=== PATIENT | male | born 1960 | race Caucasian/White ===

== ENCOUNTER 2024-11-19 11:00 | Outpatient (CLI) | payer MEDICARE, MEDICAID, SELFPAY ==
[2024-11-19 16:29] LABS: Microscopic, Urine URINE MICROSCOPIC (MICROSCOPIC)
[2024-11-19 19:05] LABS: Appearance,Urine CLEAR (Clear); Bilirubin,Urine Negative (Negative); Blood, Urine Negative (Negative); Color,Urine YELLOW (Yellow); Glucose,Urine (UA) Negative (Negative); Ketones,Urine Negative (Negative); Leukocyte Esterase,Urine Negative (Negative); Nitrate,Urine Negative (Negative); Protein,Urine Negative (Negative); Specific Gravity, Urine 1.025 (1.005-1.030); Urobilinogen,Urine 0.2 EU/dl (0.2)
[2024-11-19 19:26] LABS: Bacteria,Urine Trace /lpf; WBC,Urine Occasional #/hpf (0-3)
== END 2024-11-19 23:59 | disposition home or self-care (01) ==
LOC: LAB.DROPOF 11-21 12:29
PROVIDERS: PCP Urology; Visit Provider Urology
DX: N40.0 Benign prostatic hyperplasia without lower urinary tract symptoms (principal); R31.9 Hematuria, unspecified
CPT/HCPCS: 81001

== ENCOUNTER 2024-11-29 09:22 | Outpatient (CLI) | payer MEDICARE, MEDICAID, SELFPAY ==
[2024-11-29 10:22] LABS: Adenovirus F 40/41, stool Not Detected (NotDetected); Astrovirus Not Detected (NotDetected); Campylobacter Not Detected (NotDetected); Clostridium Difficile A/B, PCR Not Detected (NotDetected); Cryptosporidium Not Detected (NotDetected); Cyclospora Cayetanesis Not Detected (NotDetected); Entamoeba histolytica Not Detected (NotDetected); Enteroaggregative E coli Not Detected (NotDetected); Enteropathogenic E coli Not Detected (NotDetected); Enterotoxigenic E coli Not Detected (NotDetected); Giardia lamblia Not Detected (NotDetected); Norovirus Not Detected (NotDetected); Plesimonas Shigalloides, PCR Not Detected (NotDetected); Rotavirus A Not Detected (NotDetected); Salmonella, PCR Not Detected (NotDetected); Sapovirus Not Detected (NotDetected); Shiga-like toxin E coli Not Detected (NotDetected); Shigella Enterovasive E coli Not Detected (NotDetected); Vibrio Cholerae Not Detected (NotDetected); Vibrio, PCR Not Detected (NotDetected); Yersinia Entercolitica, PCR Not Detected (NotDetected)
== END 2024-11-29 23:59 | disposition home or self-care (01) ==
PROVIDERS: PCP Family Medicine; Visit Provider Family Medicine
DX: R19.7 Diarrhea, unspecified (principal); E11.9 Type 2 diabetes mellitus without complications; R31.9 Hematuria, unspecified
CPT/HCPCS: 87507

== ENCOUNTER 2024-12-10 08:39 | Outpatient (CLI) | payer MEDICARE, MEDICAID, SELFPAY ==
[2024-12-10 08:48] LABS: Albumin Level 4.3 g/dl (3.5-5.0); Chloride 104 mmol/L (98-107); Potassium 4.2 mmoL/L (3.5-5.1); Sodium 141 mmol/L (136-145)
[2024-12-10 08:51] LABS: Alanine Aminotransferase 13 U/L (12-78); Albumin/Globulin Ratio 1.6 (1.1-1.8); Anion Gap 7.2 mEq/L (5-15); Aspartate Amino Transferase 22 U/L (17-59); Blood Urea Nitrogen 18 mg/dl (9-20); Carbon Dioxide 34 mmol/L (22.0-30.0); Estimated Glomerular Filt Rate 75 ml/min (>60); GFR (African American) 91 ML/MIN (>60); Globulin 2.7 g/dL (1.3-3.2)
[2024-12-10 08:52] LABS: Alkaline Phosphatase 86 U/L (38-126); Bilirubin,Total 0.5 mg/dl (0.2-1.3); Calcium 9.2 mg/dl (8.4-10.2); Glucose 83 mg/dl (74-100)
== END 2024-12-10 23:59 | disposition home or self-care (01) ==
LOC: LAB.DROPOF 08:39
PROVIDERS: PCP Family Medicine; Visit Provider Family Medicine
DX: R19.7 Diarrhea, unspecified (principal); R31.9 Hematuria, unspecified; E11.22 Type 2 diabetes mellitus with diabetic chronic kidney disease; I12.9 Hypertensive chronic kidney disease with stage 1 through stage 4 chronic kidney disease, or unspecified chronic kidney disease; N18.9 Chronic kidney disease, unspecified
CPT/HCPCS: 80053; 84153

== ENCOUNTER 2024-12-12 07:51 | Outpatient (CLI) | payer MEDICARE, MEDICAID, SELFPAY ==
--- NOTE | 2024-12-12 07:51 | CT_ITS ---
FINAL REPORT TECHNIQUE: Pre-and postcontrast axial imaging of the abdomen and pelvis was obtained. Hematuria protocol was utilized. This study was performed with techniques to keep radiation doses as low as reasonably achievable, (ALARA). Individualized dose reduction technique using automated exposure control or adjustment of mA and/or kV according to the patient's size were employed. CLINICAL HISTORY: Hematuria FINDINGS: There are reticular nodular opacities in the lower lobe favored to represent infectious or inflammatory process. The liver is homogeneous without focal lesion. Multiple gallstones are seen in the gallbladder. The spleen and pancreas are without acute abnormalities. There are bilateral adrenal nodules measuring 17 mm on the right and 22 mm on the left. Both demonstrate less than 10 Hounsfield units on the noncontrast imaging consistent with adenomas. Precontrast imaging demonstrates bilateral nonobstructing stones. There is no hydronephrosis. There are bilateral hypodense renal lesions. Some of these are cyst. A small lesion along the anterior inferior left kidney is difficult to characterize due to small size. A small solid lesion is not excluded. There is no small bowel obstruction. There is an abdominal aortic aneurysm measuring 31 mm. 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 There is a patent femoral to femoral bypass graft. The appendix is normal. There is wall thickening of the sigmoid colon and the descending colon. Colitis is not excluded. The prostate is mildly enlarged. The urinary bladder is thick-walled with surrounding abnormal in attenuation. There is no lymphadenopathy or ascites. No acute osseous abnormality is seen. IMPRESSION: Bilateral nonobstructing renal stones. Small lesion in the inferior pole the left kidney could be a small solid lesion. Evaluation is limited. 3 to 6-month renal mass protocol CT is recommended. Possible left lower lobe pneumonia. Cystitis. Wall thickening of the distal portions of the colon Possible left lower lobe pneumonia. Cystitis. Wall thickening of the distal portions of the colon. Colitis is not excluded. Additional chronic findings as above. Reviewed, Interpreted and Dictated by Kelly Brower MD Transcribed by Gertrudis Drummond Authenticated and [facility]
[2024-12-12] MEDS: IOPAMIDOL-370 (76%);100ML BOTTLE 75 ML IV (08:17)
[2024-12-12] MEDS: SODIUM CHLORIDE 0.9% 10ML SYR (RAD ONLY) 10 ML IV (08:17)
== END 2024-12-12 23:59 | disposition home or self-care (01) ==
PROVIDERS: PCP Family Medicine; Visit Provider Urology
DX: N40.0 Benign prostatic hyperplasia without lower urinary tract symptoms (principal); R31.9 Hematuria, unspecified
CPT/HCPCS: 74178; Q9967

== ENCOUNTER 2024-12-21 10:19 | Outpatient (CLI) | payer MEDICARE, MEDICAID, SELFPAY ==
[2024-12-21 10:39] LABS: Glucose,Random 83 mg/dL (74-100)
== END 2024-12-21 23:59 | disposition home or self-care (01) ==
LOC: LAB 10:20
PROVIDERS: PCP Nurse Practitioner Family; Visit Provider Nurse Practitioner Family
DX: E11.9 Type 2 diabetes mellitus without complications (principal)
CPT/HCPCS: 36415; 82947

== ENCOUNTER 2025-01-04 07:25 | Day surgery (SDC) | payer MEDICARE, MEDICAID, SELFPAY ==
[2025-01-01 10:02] VITALS: BMI 21.1
[2025-01-04 08:03] VITALS: BP 142/65; PULSE 47; RESP 18; TEMP 36.3; O2SAT 97
[2025-01-04] MEDS: 0.9 % SODIUM CHLORIDE 500 ML 25 ML IV (08:20)
[2025-01-04] MEDS: LIDOCAINE 2% UROJET 10ML 10 ML (08:20)
[2025-01-04 08:24] VITALS: BP 165/68; PULSE 55; RESP 16; RESP 18; TEMP 37.1; O2SAT 97; O2SAT 98
--- NOTE | 2025-01-04 08:24 | P.PCN_ITS ---
[facility] Procedure Note Date: 01/04/25 Time: 08:24 Procedure Note:: Chart review: Patient resides in the detention. He has been having intermittent total gross painless hematuria. He is here for cystoscopy. His CT scan on 12/11 shows bilateral nephrolithiasis. There is a small questionable lesion of the left kidney and we will follow that with a CT scan 06/13. Pre-Op diagnosis: Hematuria Postop diagnosis: Hematuria Operative note: The patient was brought to the cystoscopy suite. Xylocaine jelly was instilled into the urethra. He underwent flexible cystoscopy. The anterior urethra was unremarkable. From the level of the verumontanum the patient has grade 2 trilobar prostate obstruction. The patient's bladder is moderately trabeculated throughout. The left and right ureteral orifices are normal with clear reflux of urine. There is no evidence of bladder stone tumor hemorrhage or infection. The patient tolerated the procedure well.
[2025-01-04 14:52] LABS: POC Glucose,Bedside 88 (70-110)
== END 2025-01-04 08:45 | disposition home or self-care (01) ==
PROVIDERS: PCP Family Medicine; Visit Provider Urology
PROC: 0TJB8ZZ Inspection of Bladder, Via Natural or Artificial Opening Endoscopic (ICD-10-PCS; CPT 52000; principal; 2025-01-04 08:45)
DX: R31.0 Gross hematuria (principal); E11.9 Type 2 diabetes mellitus without complications
CPT/HCPCS: 52000; 82962

== ENCOUNTER 2025-01-09 07:18 | Outpatient (CLI) | payer MEDICARE, MEDICAID, SELFPAY ==
[2025-01-09 07:57] LABS: Glucose,Random 86 mg/dL (74-100)
== END 2025-01-09 23:59 | disposition home or self-care (01) ==
PROVIDERS: PCP Family Medicine; Visit Provider Family Medicine
DX: E11.9 Type 2 diabetes mellitus without complications (principal)
CPT/HCPCS: 36415; 82947

== ENCOUNTER 2025-01-16 07:09 | Outpatient (CLI) | payer MEDICARE, MEDICAID, SELFPAY ==
[2025-01-16 07:31] LABS: Glucose,Random 86 mg/dL (74-100)
== END 2025-01-16 23:59 | disposition home or self-care (01) ==
PROVIDERS: PCP Family Medicine; Visit Provider Family Medicine
DX: E11.9 Type 2 diabetes mellitus without complications (principal)
CPT/HCPCS: 36415; 82947

== ENCOUNTER 2025-03-09 00:47 | Emergency (ER) | payer MEDICARE, MEDICAID, SELFPAY ==
--- NOTE | 2025-03-09 00:44 | ECG_ITS ---
APPROVED REPORT Exam: Resting ECG HR:59 bpm ECG Measurements Heart Rate 59 AXES VA 179 P 85 QRSd 95 QRS 87 QT 455 T 82 QTc 454 Conclusion SINUS BRADYCARDIA ABNORMAL ECG UNCONFIRMED REPORT Electronically signed by : MICHAEL ESPARZA, 03/10/2025 02:40:33
--- NOTE | 2025-03-09 00:47 | CT_ITS ---
PROCEDURE INFORMATION: Exam: CT Thoracic Spine Without Contrast Exam date and time: 03/09/2025 1:01 AM Age: 64 years old Clinical indication: Injury or trauma; Fall TECHNIQUE: Imaging protocol: Computed tomography of the thoracic spine without contrast. Total images: 334 Radiation optimization: All CT scans at this facility use at least one of these dose optimization techniques: automated exposure control; mA and/or kV adjustment per patient size (includes targeted exams where dose is matched to clinical indication); or iterative reconstruction. COMPARISON: CT CERVICAL SPINE WO CON 03/09/2025 12:58 AM FINDINGS: Bones/joints: Osseous demineralization. Mild anterior wedging of the T5 vertebral body appears nonacute. Mild superior endplate depression T6, T9, and T10 vertebral bodies also appears nonacute. Vertebral body alignment is preserved. No acute compression deformities. No large disc herniation or critical spinal canal stenosis. The facet joints are appropriately aligned. Maintained thoracic kyphosis. Mild S-shaped thoracic scoliosis. Mild multilevel degenerative disc disease with mild degenerative endplate spurring. Included posterior ribs and bilateral costovertebral joints are maintained. Soft tissues: No paraspinal mass, fluid collection, or edema. Unremarkable soft tissues. Other findings: Please refer to separate chest CT for additional details. IMPRESSION: 1. No acute thoracic fracture or traumatic subluxation. 2. Mild anterior wedging of T5 vertebral body appears nonacute. 3. Mild superior endplate depression T6, T9, and T10 vertebral bodies also appears nonacute. 4. Mild multilevel degenerative disc disease.
--- NOTE | 2025-03-09 00:47 | CT_ITS ---
PROCEDURE INFORMATION: Exam: CT Head Without Contrast Exam date and time: 03/09/2025 12:55 AM Age: 64 years old Clinical indication: Injury or trauma; Fall TECHNIQUE: Imaging protocol: Computed tomography of the head without contrast. Total images: 635 Radiation optimization: All CT scans at this facility use at least one of these dose optimization techniques: automated exposure control; mA and/or kV adjustment per patient size (includes targeted exams where dose is matched to clinical indication); or iterative reconstruction. COMPARISON: No relevant prior studies available. FINDINGS: Brain: No acute intracranial hemorrhage, midline shift, or mass. Moderate to severe cortical atrophy. Severe remote white matter small-vessel ischemic changes. 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 No acute territorial infarct. Basilar cisterns are preserved. Remote lacunar infarcts in the left basal ganglia and left thalamus. Benign dense dural calcification along the falx. Cerebral ventricles: Ventriculomegaly compatible degree of central atrophy. Paranasal sinuses: Mild mucosal thickening base of the bilateral maxillary sinuses and scattered ethmoid air cells. No air-fluid levels. Mastoid air cells: Visualized mastoid air cells are well aerated. Bones: Osseous demineralization. No skull fracture. Soft tissues: Unremarkable. Vasculature: Severe calcifications bilateral intracranial internal carotid arteries. IMPRESSION: 1. No acute intracranial process. 2. Advanced chronic intracranial findings as described.
--- NOTE | 2025-03-09 00:47 | CT_ITS ---
PROCEDURE INFORMATION: Exam: CT Cervical Spine Without Contrast Exam date and time: 03/09/2025 12:58 AM Age: 64 years old Clinical indication: Injury or trauma; Fall TECHNIQUE: Imaging protocol: Computed tomography of the cervical spine without contrast. Total images: 365 Radiation optimization: All CT scans at this facility use at least one of these dose optimization techniques: automated exposure control; mA and/or kV adjustment per patient size (includes targeted exams where dose is matched to clinical indication); or iterative reconstruction. COMPARISON: CT HEAD/BRAIN WO CON 03/09/2025 12:55 AM FINDINGS: Bones: Straightened cervical lordosis with minor dextrocurvature. Osseous demineralization. Vertebral body height and alignment is maintained. The base of the dens and the C1 and C2 articulations are preserved with mild degenerative arthropathy. The cervicooccipital junction is intact. The facet joints are appropriately aligned. Moderate degenerative set joint spondylosis at C2-C3. Posterior elements are intact. [id number] multilevel degenerative disc disease greatest at C4-C5, C5-C6, and C6-C7 with associated posterior projecting disc osteophyte complex, bilateral neural foraminal encroachments, and mild acquired spinal canal stenosis. No concerning bone lesions. Lungs: Heterogeneous multinodular thyroid gland, including a dominant 2 cm right lobe nodule with extrathyroidal extension. Calcification left thyroid lobe. Pleural spaces: Medial right apical subpleural blebs favored over miniscule pneumothorax. Vasculature: Mild calcifications bilateral carotid artery bifurcations. Soft tissues: Soft tissue ossification posterior to the cervical spine compatible with remote ligamentous injury. No prevertebral soft tissue swelling. IMPRESSION: 1. No acute cervical fracture or traumatic subluxation. 2. Straightened lordosis from position or muscle spasm. 3. Moderate multilevel degenerative disc disease and facet joint spondylosis. 4. Multinodular thyroid gland including a dominant 2 cm right lobe nodule. Follow-up nonemergent thyroid ultrasound. 5. Medial left apical subpleural bleb strongly favored over miniscule pneumothorax. COMMENTS: Consistent with the [employer]'s Incidental Findings Committee white paper (J Am Francisco Javier Radiol 2015): In patients aged 35 years and older with an incidental thyroid nodule equal to or greater than 1.[address], MRI or extrathyroidal US, further evaluation with dedicated thyroid US is recommended for patients with normal life expectancy and without comorbidities. For smaller nodules without suspicious features, no further evaluation or follow up is recommended.
--- NOTE | 2025-03-09 00:47 | CT_ITS ---
PROCEDURE INFORMATION: Exam: CT Chest Without Contrast; Diagnostic Exam date and time: 03/09/2025 1:09 AM Age: 64 years old Clinical indication: Injury or trauma; Fall TECHNIQUE: Imaging protocol: Diagnostic computed tomography of the chest without contrast. Total images: 419 Radiation optimization: All CT scans at this facility use at least one of these dose optimization techniques: automated exposure control; mA and/or kV adjustment per patient size (includes targeted exams where dose is matched to clinical indication); or iterative reconstruction. COMPARISON: CT THORACIC SPINE WO CON 03/09/2025 1:01 AM FINDINGS: Thyroid: Multinodular thyroid gland including dominant 2 cm posterior right thyroid lobe nodule. Left thyroid lobe calcification. Lungs: The trachea and main bronchi are patent. Right lower lobe bronchial wall thickening. Acute scattered peribronchial infiltrates throughout the right lower lobe, medial right middle lobe, medial right upper lobe, and inferior lingula. Dependent atelectasis or juxtapleural fibrosis of the left lung base. Coarse linear atelectasis or scarring left upper lobe. Medial left apical subpleural blebs. Pleural spaces: Unremarkable. No pneumothorax. No pleural effusion. Heart: Normal heart size. Trace pericardial effusion. Trace fluid in the superior pericardial recess. Coronary arteries: Moderate to severe coronary artery calcifications. Lymph nodes: Small scattered mediastinal lymph nodes are not pathologically enlarged. Limited hilar assessment by lack of contrast. Vasculature: Moderately atherosclerotic thoracic aorta without aneurysm. Intraperitoneal space: Upper abdominal findings described separately. Bones/joints: Thoracic spine CT dictated separately. No acute rib fractures. Soft tissues: Under chest wall edema/anasarca. IMPRESSION: 1. No acute posttraumatic process. 2. Acute scattered peribronchial infiltrates throughout the right lower lobe, and to a much lesser extent in the right upper lobe, right middle lobe, and lingula. 3. Coarse linear atelectasis or scarring in the left upper lobe. 4. Tiny medial left apical subpleural blebs. 5. Multinodular thyroid gland. Follow-up nonemergent ultrasound. 6. Trace pericardial effusion. 7. Moderate to severe coronary artery calcifications. COMMENTS: Consistent with the [employer]'s Incidental Findings Committee white paper (J Am Francisco Javier Radiol 2015): In patients aged 35 years and older with an incidental thyroid nodule equal to or greater than 1.[address], MRI or extrathyroidal US, further evaluation with dedicated thyroid US is recommended for patients with normal life expectancy and without comorbidities. For smaller nodules without suspicious features, no further evaluation or follow up is recommended.
--- NOTE | 2025-03-09 00:47 | CT_ITS ---
PROCEDURE INFORMATION: Exam: CT Abdomen And Pelvis Without Contrast Exam date and time: 03/09/2025 1:12 AM Age: 64 years old Clinical indication: Injury or trauma; Fall TECHNIQUE: Imaging protocol: Computed tomography of the abdomen and pelvis without contrast. Total images: 302 Radiation optimization: All CT scans at this facility use at least one of these dose optimization techniques: automated exposure control; mA and/or kV adjustment per patient size (includes targeted exams where dose is matched to clinical indication); or iterative reconstruction. COMPARISON: CT ABDOMEN PELVIS WO/W CON 12/12/2024 8:12 AM FINDINGS: Liver: Normal. No mass. Gallbladder and biliary ducts: Cholelithiasis without secondary signs of acute cholecystitis. No biliary ductal dilatation. Pancreas: Normal. No ductal dilation. Spleen: Normal. No splenomegaly. Adrenal glands: Normal. No mass. Kidneys and ureters: No hydronephrosis or discrete renal mass. Punctate calcifications in the bilateral renal sinus may reflect nephrolithiasis or more likely vascular calcifications. Small right renal cyst. No perinephric fluid. Stomach and bowel: Unremarkable stomach and duodenum. No ileus or bowel obstruction. Limited bowel wall assessment. Unremarkable small bowel. Moderate colonic stool burden. No acute colonic inflammatory process. Unremarkable rectum. Fecalization of the distal small bowel. Appendix: Normal appendix. Intraperitoneal space: Unremarkable. No free air. No significant fluid collection. Vasculature: Moderate atherosclerotic vascular disease. 3.3 cm infrarenal abdominal aortic aneurysm without rupture. Left external iliac artery stent. Bi femoral bypass. Numerous pelvic phleboliths. Lymph nodes: Unremarkable. No enlarged lymph nodes. Urinary bladder: Mild circumferential bladder wall thickening. Reproductive: Mild prostatomegaly. Bones/joints: Lumbar spine CT dictated separately. Moderate degenerative changes bilateral hips. No acute pelvic or hip fracture. No joint dislocation. Soft tissues: Tiny fat containing umbilical hernia. IMPRESSION: 1. No acute posttraumatic process. 2. 3.3 cm infrarenal abdominal aortic aneurysm without rupture. Follow-up imaging in 3 years is recommended. 3. Cholelithiasis without secondary signs of acute cholecystitis. 4. Constipation with moderate colonic stool burden and fecalization of the distal small bowel. 5. Bladder wall thickening from incomplete distension versus cystitis or chronic outlet obstruction. 6. Multiple additional chronic and incidental findings. COMMENTS: Consistent with the [employer]'s Incidental Findings Committee white paper (J Am Francisco Javier Radiol 2018): Any incidental renal lesion less than 1 cm or classified as too small to characterize, or any incidental cystic renal lesion characterized as simple-appearing, is likely benign. No follow-up imaging is recommended for these lesions per consensus recommendations based on imaging criteria.
--- NOTE | 2025-03-09 00:47 | CT_ITS ---
PROCEDURE INFORMATION: Exam: CT Lumbar Spine Without Contrast Exam date and time: 03/09/2025 1:05 AM Age: 64 years old Clinical indication: Injury or trauma; Fall TECHNIQUE: Imaging protocol: Computed tomography of the lumbar spine without contrast. Total images: 265 Radiation optimization: All CT scans at this facility use at least one of these dose optimization techniques: automated exposure control; mA and/or kV adjustment per patient size (includes targeted exams where dose is matched to clinical indication); or iterative reconstruction. COMPARISON: CT THORACIC SPINE WO CON 03/09/2025 1:01 AM FINDINGS: Bones/joints: Osseous demineralization. Five non rib-bearing lumbar vertebral segments. Mild central compression deformity with superior endplate depression and Schmorl's node at L4 with nonacute features. Mild loss of posterior vertebral body height at L5, remote or developmental. Disc space heights are relatively well preserved. The facet joints are appropriately aligned. Mild degenerative endplate spurring at multiple levels with bridging endplate osteophyte formation and anteriorly at L1-L2. No concerning bone lesions. No large disc herniation or critical spinal canal stenosis. No significant osseous neural foraminal encroachments. Mild degenerative changes bilateral SI joints. The posterior elements are intact. Mild degenerative set joint spondylosis L4-L5. Soft tissues: No paraspinal mass, fluid collection, or edema. Other findings: Additional findings can be found on separate CT abdomen and pelvis report. IMPRESSION: 1. No acute lumbar fracture or traumatic subluxation. 2. Mild multilevel degenerative disc disease. 3. Remote central compression deformity L4 vertebral body. 4. Remote mild loss of posterior to be body height at L5. 5. Above findings unchanged from abdomen CT December 12, 2024.
[2025-03-09 00:48] VITALS: BP 134/64; PULSE 56; RESP 15; TEMP 37.3; O2SAT 91; BMI 19.0
[2025-03-09 00:49] VITALS: BP 135/64; PULSE 57; O2SAT 92
--- NOTE | 2025-03-09 00:49 | HMH.EDGENADL ---
Discharge Plan Disposition Patient Disposition: Home, Self-Care Prescriptions Prescriptions: No Action baclofen 5 mg tablet 5 mg PO HS clopidogrel [Plavix] 75 mg tablet 75 mg PO DAILY divalproex [Depakote] 250 mg tablet,delayed release (DR/EC) 250 mg PO BID docusate sodium 100 mg capsule 100 mg PO DAILY fluphenazine HCl 5 mg tablet 5 mg PO TID fluticasone propionate 50 mcg/actuation spray,suspension 1 spray intranasal DAILY Rx Instructions: administer into each nostril Ingrezza 80 mg capsule 80 mg PO DAILY melatonin 10 mg capsule 10 mg PO HS metoprolol tartrate 25 mg tablet 25 mg PO BID prazosin 1 mg capsule 1 mg PO HS sertraline 100 mg tablet 100 mg PO DAILY trazodone 100 mg tablet 100 mg PO HS albuterol sulfate 90 mcg/actuation HFA aerosol inhaler 2 puff inhalation Q6H PRN (Reason: copd) dextromethorphan polistirex [Cough DM ER] 30 mg/5 mL suspension,extended rel 12 hr 5 ml PO Q12H PRN (Reason: Cough) acetaminophen 500 mg tablet 500 mg PO Q6H PRN (Reason: pain/fever) cyclobenzaprine 10 mg tablet 10 mg PO BID PRN (Reason: Muscle Spasm) diphenhydramine HCl [Allergy Relief(diphenhydramin)] 25 mg capsule 25 mg PO Q8H PRN (Reason: allergies) loperamide 2 mg capsule 2 mg PO Q6H PRN (Reason: diarhhea) magnesium hydroxide [Milk of Magnesia] 400 mg/5 mL suspension 2,400 mg PO Q4HP PRN (Reason: Constipation) acetaminophen 500 mg tablet 500 mg PO QHS sertraline 50 mg tablet 50 mg PO DAILY multivitamin Tablet 1 tab PO DAILY clonazepam 0.5 mg tablet 0.5 mg PO HS Qty: 30 5RF gabapentin 100 mg capsule 100 mg PO BID Qty: 60 5RF amlodipine 10 mg tablet 10 mg PO DAILY Qty: 90 3RF tramadol 50 mg tablet 50 mg PO Q8H PRN (Reason: pain) Qty: 90 5RF Referrals Follow up/Referrals: Provider,Referral, MD [Primary Care Provider, Medical] - See instructions Activity Restrictions/Add. Instructions Additional Instructions/Restrictions: Please follow-up with your primary care provider. Please return to the emergency department if you develop any new or worsening symptoms or become concerned for your health. Clinical Impressions Clinical Impression: Fall, Thyroid nodule Print Language Print Language: Turkish Discharge ED Provider: Pacheco Shah General Adult HPI General Chief complaint: Fall Stated complaint: fall approx 0010, plavix, unwitnessed, no LOC Time Seen by Provider: 03/09/25 00:49 History of Present Illness HPI narrative: 64-year-old male with history of dyskinesia, schizophrenia, resident [facility] presents for fall. He had a fall from standing that was witnessed by his roommate. Patient reports mild headache but denies any other symptoms. Patient is a very poor historian. Per nursing facility, patient is slightly less responsive than normal. Related Data Home Medications ?Medication ?Instructions ?Recorded ?Confirmed albuterol sulfate 90 mcg/actuation 2 puff inhalation Q6H PRN copd 10/25/24 03/09/25 aerosol inhaler baclofen 5 mg tablet 5 mg PO HS 10/25/24 03/09/25 clopidogrel 75 mg tablet (Plavix) 75 mg PO DAILY 10/25/24 03/09/25 divalproex 250 mg tablet,delayed 250 mg PO BID 10/25/24 03/09/25 release (Depakote) docusate sodium 100 mg capsule 100 mg PO DAILY 10/25/24 03/09/25 fluphenazine HCl 5 mg tablet 5 mg PO TID 10/25/24 03/09/25 fluticasone propionate 50 1 spray intranasal DAILY 10/25/24 03/09/25 mcg/actuation nasal spray,suspension melatonin 10 mg capsule 10 mg PO HS Sleep 10/25/24 03/09/25 metoprolol tartrate 25 mg tablet 25 mg PO BID 10/25/24 03/09/25 prazosin 1 mg capsule 1 mg PO HS 10/25/24 03/09/25 sertraline 100 mg tablet 100 mg PO DAILY 10/25/24 03/09/25 trazodone 100 mg tablet 100 mg PO HS 10/25/24 03/09/25 valbenazine 80 mg capsule 80 mg PO DAILY 10/25/24 03/09/25 (Ingrezza) acetaminophen 500 mg tablet 500 mg PO Q6H PRN pain/fever 01/29/25 03/09/25 acetaminophen 500 mg tablet 500 mg PO QHS 01/29/25 03/09/25 cyclobenzaprine 10 mg tablet 10 mg PO BID PRN Muscle Spasm 01/29/25 03/09/25 dextromethorphan polistirex 30 5 ml PO Q12H PRN Cough 01/29/25 03/09/25 mg/5 mL oral susp ext.release 12hr (Cough DM ER) diphenhydramine HCl 25 mg capsule 25 mg PO Q8H PRN allergies 01/29/25 03/09/25 (Allergy Relief (diphenhydramine)) loperamide 2 mg capsule 2 mg PO Q6H PRN diarhhea 01/29/25 03/09/25 magnesium hydroxide 400 mg/5 mL 2,400 mg PO Q4HP PRN Constipation 01/29/25 03/09/25 oral suspension (Milk of Magnesia) multivitamin 1 tab PO DAILY 01/29/25 03/09/25 sertraline 50 mg tablet 50 mg PO DAILY 01/29/25 03/09/25 Previous Rx's ?Medication ?Instructions ?Recorded clonazepam 0.5 mg tablet 0.5 mg PO HS #30 tabs 10/25/24 gabapentin 100 mg capsule 100 mg PO BID #60 caps 10/25/24 amlodipine 10 mg tablet 10 mg PO DAILY #90 tabs 12/18/24 tramadol 50 mg tablet 50 mg PO Q8H PRN pain #90 tabs 01/25/25 Allergies Allergy/AdvReac Type Severity Reaction Status Date / Time haloperidol (From Haldol) Allergy Unknown Verified 03/05/25 11:52 allergy reaction ibuprofen Allergy Unknown Verified 03/05/25 11:52 allergy reaction [facility] Disclaimer: The information contained in this section may have been updated after the patient was seen, as this information can be updated by other users. Medical History (Updated 03/09/25 @ 01:47 by Pacheco Shah MD) Renal mass Tardive dyskinesia Right carotid bruit Neurocognitive disorder Chronic neck pain Tobacco dependence Nodule of left lung COPD (chronic obstructive pulmonary disease) Alcoholism Chronic kidney disease Insomnia Schizophrenia Anxiety Seizure Hyperlipidemia HTN (hypertension) Peripheral vascular disease Diabetes mellitus Surgical History S/P femoral-popliteal bypass surgery (~08/2017) Family History Other No significant family history Social History Smoking Status: Never smoker alcohol intake: never current occupational status: disabled Travel in the last 8 weeks?: None household members: none housing: mcc lives independently: No caffeine: No Other Medical History Have you received the Pneumonia Vaccine: Yes (12/24/24) ROS Obtained: Yes All systems reviewed & no additional complaints except as documented Physical Exam General General appearance: alert and in no apparent distress Head Head exam: atraumatic and normocephalic Eye Eye exam: Present normal appearance, PERRL and EOMI ENT ENT exam: Present normal oropharynx and normal external ear exam Neck Neck exam: Present normal inspection and full ROM; Absent tenderness Chest Chest inspection: Present normal inspection and symmetric chest wall rise; Absent tenderness Respiratory Respiratory exam: Present normal lung sounds bilaterally; Absent respiratory distress Cardiovascular Cardiovascular exam: Present regular rate and normal rhythm Abdominal Exam Abdominal exam: Present soft; Absent distention, tenderness or guarding Extremities Exam Extremities exam: Present normal inspection; Absent edema or joint swelling Back Exam Back exam: Present normal inspection; Absent tenderness Neurological Exam Neurological exam: Present alert and other (GCS 13); Absent oriented X3 or motor sensory deficit Psychiatric Psychiatric exam: Present normal affect and normal mood Skin Skin exam: Present warm, dry and normal color Lymphatic Lymphatic Findings: no adenopathy Medical Decision Making Medical Records Medical records reviewed: Yes I reviewed the patient's medical records. Screening: Per USPSTF and CDC recommendations, given the prevalence of disease in our region, it is our hospital?s policy to screen for HIV and viral Hepatitis for all patients aged 18 and over and those with ongoing risk factors. Jamie Inquiry Pt receiving controlled substance: No Jamie was queried for this patient: No Vital Signs: 03/09/25 00:48 03/09/25 00:49 03/09/25 00:57 Temperature 99.1 F 99.1 F Temperature Source Oral Oral Pulse Rate 57 L Pulse Rate [Right Radial] 56 L 56 L Respiratory Rate 15 15 Blood Pressure 135/64 Blood Pressure [Right Arm] 134/64 134/64 Blood Pressure Mean [Right Arm] 87 87 Blood Pressure Source [Right Arm] Automatic Cuff Automatic Cuff 02 Sat by Pulse Oximetry 91 L 92 L 94 L Oxygen Delivery Method Room Air Room Air Lab Data Lab results reviewed: Yes I reviewed the patient's lab results. Lab Results 03/09/25 00:34: WBC 13.6 H, RBC 4.22 L, Hgb 12.2 L, Hct 37.4 L, MCV 88.6, MCH 28.9, MCHC 32.6, RDW 15.1, Plt Count 112 L, MPV 12.4 H, Neut % (Auto) 73.2, Lymph % (Auto) 13.3, [place] % (Auto) 11.9 H, Eos % (Auto) 1.0, Baso % (Auto) 0.2, Neut # (Auto) 10.0 H, Lymph # (Auto) 1.8, [place] # (Auto) 1.6 H, Eos # (Auto) 0.1, Baso # (Auto) 0.0, PT 12.4, INR 1.13 H, APTT 46.7 H, Sodium 138, Potassium 4.2, Chloride 99, Carbon Dioxide 28, Anion Gap 15.2 H, BUN 31 H, Creatinine 1.60 H, Estimated Creat Clear 42, Estimated GFR 44 L, Est GFR ( Amer) 53 L, Glucose 116 H, Calcium 9.5, Total Bilirubin 0.5, AST 18, ALT 12, Alkaline Phosphatase 117, Total Protein 6.9, Albumin 3.9, Globulin 3.0, Albumin/Globulin Ratio 1.3 03/09/25 00:34 03/09/25 00:34 Orders (Tests/Meds): ORDERS Category Date Time Status CT abdomen pelvis wo con Stat Cat Scan 03/09/25 00:[address] cervical spine wo con Stat Cat Scan 03/09/25 00:[address] chest wo con Stat Cat Scan 03/09/25 00:[address] head/brain wo con Stat Cat Scan 03/09/25 00:[address] lumbar spine wo con Stat Cat Scan 03/09/25 00:[address] thoracic spine wo con Stat Cat Scan 03/09/25 00:47 Taken POCUS Point of Care (ER Only) Stat Exams 03/09/25 00:48 Ordered CBC w/Auto Diff [Complete Blood Count Auto Diff] Stat Lab 03/09/25 00:34 Received CMP [Comprehensive Metabolic Panel] Stat Lab 03/09/25 00:34 Completed HIV Combo Routine Lab 03/09/25 00:34 Received Hepatitis C Ab Qual. W/ RFX Routine Lab 03/09/25 00:34 Received PT INR [Prothrombin Time INR] Stat Lab 03/09/25 00:34 Received PTT [Activated Partial Thrombo Time] Stat Lab 03/09/25 00:34 Received EKG Request [ECG Request] Stat Y 03/09/25 00:48 Ordered ECG Data Tracing #1: I reviewed this ECG and interpreted as documented below: Sinus bradycardia with rate of 59, significant baseline artifact limits interpretation, no evidence of ST elevation or arrhythmia. ECG initial impression date: 03/09/25 ECG initial impression time: 00:44 Medical Decision Narrative: 64-year-old male with history of schizophrenia COPD, resident of nursing facility, presents after a fall from standing, striking his head. He is on Plavix.. History was obtained via interactive discussion with patient, EMS, nursing facility, chart review. On arrival, patient is afebrile, hemodynamically stable, GCS 13, moving all extremities spontaneously. Full physical exam performed and significant for no obvious traumatic injuries. Patient is a poor historian. Only complains of a mild headache Differential includes but is not limited to intracranial trauma intrathoracic trauma intra-abdominal trauma spine trauma extremity trauma. Workup initiated including broad-spectrum blood work, noncontrast CT scans. Bedside FAST exam was performed by me and was negative.. On re-evaluation, patient [remains afebrile, HD stable.] Laboratory workup independently interpreted by me and significant for mild leukocytosis, mildly elevated creatinine from baseline, no significant electrolyte derangement Imaging independently interpreted by me and significant for extensive chronic findings, no new acute traumatic injuries. See radiology read for full review of final results. Patient c-collar was cleared at bedside and patient was discharged back to nursing facility in stable condition. Procedures Risk/Benefits of Procedure(s) Were Explained: Yes Limited Ultrasound Indication:: Limited EFAST ultrasound Indication: Blunt trauma Views: [LUQ, RUQ, Pelvis, Limited Cardiac, Limited Thoracic] Interpretation: Peritoneal Free Fluid: Absent Pericardial effusion: Absent Right lung pneumothorax: Absent Left Lung pneumothorax: Absent Impression: Neck EFAST ultrasound Images were saved to permanent archive The study was technically adequate CPT 35971-38 (limited cardiac) 15232-57 (limited abdominal) 21318-62 (chest) This study was performed by me, and I personally interpreted all images/videos. Critical Care Critical Care Time Critical Care Time: Yes Attestation: On 03/09/25, the high probability of a clinically significant, sudden or life threatening deterioration of the following system(s) required my full and direct attention, intervention and personal management. The time I documented below is in addition to time spent performing reported procedures but includes the following listed in this critical care notation. Total Time Total Critical Care Time: 40
--- NOTE | 2025-03-09 00:55 | PC.NURSE ---
Pt to CT at this time.
[2025-03-09 00:57] VITALS: BP 134/64; PULSE 56; RESP 15; TEMP 37.3; O2SAT 94
[2025-03-09 01:11] LABS: Basophils % 0.2 % (0.1-2.0); Eosinophils # 0.1 Kmm3 (0.0-0.4); Hematocrit 37.4 % (42.0-52.0); Hemoglobin 12.2 g/dL (14.1-18.0); Immature Granulocytes # 0.06 10^3uL; Immature Granulocytes % 0.4 %; Lymphocytes # 1.8 K/mm3 (0.7-4.5); Lymphocytes % 13.3 % (10-50); Mean Corpuscular HGB Conc 32.6 g/dL (31.8-35.4); Mean Corpuscular Hemoglobin 28.9 pg (27.0-31.2); Mean Corpuscular Volume 88.6 fl (80-94); Mean Platelet Volume 12.4 fl (7.4-10.4); Monocytes # 1.6 K/mm3 (0.1-1.0); Monocytes % 11.9 % (1.7-9.3); Neutrophils % 73.2 % (37.0-80.0); Nucleated Red Blood Cells # 0 10^3/uL; Nucleated Red Blood Cells % 0 %; Platelet Count 112 K/mm3 (142-424); Red Blood Count 4.22 M/mm3 (4.60-6.20); Red Cell Distribution Width 15.1 % (11.5-17.5); Red Cell Distribution Width-SD 49.1 fL; White Blood Count 13.6 K/mm3 (4.8-10.8)
[2025-03-09 01:12] LABS: Alanine Aminotransferase 12 U/L (12-78); Albumin Level 3.9 g/dl (3.5-5.0); Albumin/Globulin Ratio 1.3 (1.1-1.8); Alkaline Phosphatase 117 U/L (38-126); Anion Gap 15.2 mEq/L (5-15); Aspartate Amino Transferase 18 U/L (17-59); Bilirubin,Total 0.5 mg/dl (0.2-1.3); Blood Urea Nitrogen 31 mg/dl (9-20); Calcium 9.5 mg/dl (8.4-10.2); Carbon Dioxide 28 mmol/L (22.0-30.0); Chloride 99 mmol/L (98-107); Creatinine Clearance Estimated 42 mL/min (50-200); Estimated Glomerular Filt Rate 44 ml/min (>60); GFR (African American) 53 ML/MIN (>60); Glucose 116 mg/dl (74-100); Potassium 4.2 mmoL/L (3.5-5.1); Sodium 138 mmol/L (136-145); Total Protein,Serum 6.9 g/dl (6.3-8.2)
--- NOTE | 2025-03-09 01:16 | PC.NURSE ---
Pt back from CT at this time.
[2025-03-09 01:17] VITALS: BP 176/80; PULSE 61; O2SAT 90
[2025-03-09 01:19] LABS: Activated Partial Thrombo Time 46.7 seconds (22.8-30.6); INR 1.13 (0.9-1.1); Prothrombin Time 12.4 seconds (10.1-12.5)
[2025-03-09 01:27] LABS: MANUAL DIFFERENTIAL MANUAL DIFFERENTIAL (MANUAL DIFF)
[2025-03-09 01:30] VITALS: BP 143/83; PULSE 63; O2SAT 92
[2025-03-09 01:57] VITALS: BP 167/93; PULSE 65; RESP 18; TEMP 37.1; O2SAT 91
[2025-03-09 01:57] LABS: Eosinophils % 1 % (0-3); Lymphocytes % 18 % (10-50); Monocytes % 11 % (2-9); Neutrophils % 70 % (42-76); Total Cells Counted 100
[2025-03-09 01:58] LABS: RBC Morphology Normal
[2025-03-09 02:00] LABS: Platelet Estimate Normal
--- NOTE | 2025-03-09 02:01 | PC.NURSE ---
Called report to [facility]. Updated staff pt is ready for DC
[2025-03-09 04:30] LABS: HIV Combo NEGATIVE (Negative)
[2025-03-09 04:38] LABS: Hepatitis C Ab Qual. W/ RFX NEGATIVE (Negative)
== END 2025-03-09 02:15 | disposition home or self-care (01) ==
PROVIDERS: Emergency Provider Emergency Medicine
DX: R51.9 Headache, unspecified (principal); R00.1 Bradycardia, unspecified; E04.1 Nontoxic single thyroid nodule; F20.9 Schizophrenia, unspecified; F17.210 Nicotine dependence, cigarettes, uncomplicated; I10 Essential (primary) hypertension; E78.5 Hyperlipidemia, unspecified; W18.30XA Fall on same level, unspecified, initial encounter; Z11.59 Encounter for screening for other viral diseases; Z11.4 Encounter for screening for human immunodeficiency virus [HIV]
CPT/HCPCS: 70450; 71250; 72125; 72128; 72131; 74176; 80053; 85007; 85025; 85027; 85610; 85730; 86803; 87389; 93005; 99285; 99291; G0390

== ENCOUNTER 2025-03-18 11:04 | Outpatient (CLI) | payer MEDICARE, MEDICAID, SELFPAY ==
--- NOTE | 2025-03-18 11:00 | US_ITS ---
FINAL REPORT TECHNIQUE: Limited sonographic images of the thyroid were obtained. CLINICAL HISTORY: thyroid nodule FINDINGS: The right lobe of the thyroid measures 4.6 x 2.9 x 2.7 cm. There is a dominant, heterogeneous, hypoechoic, solid nodule in the lower pole measuring 1.9 x 1.4 cm consistent with TR 4. There is an adjacent 1.4 cm nodule consistent with TR 4. The left lobe of the thyroid measures 4.8 x 1.4 x 1.8 cm. There is a calcified nodule measuring 0.7 cm consistent with TR 4. IMPRESSION: Dominant nodule in the right lobe of the thyroid. Recommend biopsy. Reviewed, Interpreted and Dictated by El Elliott MD Transcribed by Lindsey Rivero Authenticated and [facility]
== END 2025-03-18 23:59 | disposition home or self-care (01) ==
LOC: RAD 11:05
PROVIDERS: PCP Nurse Practitioner Family; Visit Provider Nurse Practitioner Family
DX: E04.1 Nontoxic single thyroid nodule (principal)
CPT/HCPCS: 76536

== ENCOUNTER 2025-03-29 09:33 | Outpatient (CLI) | payer MEDICARE, MEDICAID, SELFPAY ==
--- NOTE | 2025-03-29 09:45 | US_ITS ---
FINAL REPORT CLINICAL HISTORY: R93.89 - Abnormal findings on diagnostic imaging of other... -- RT THYROID NODULE -- RT NODULE FNA -- ALESIA CACERES FINDINGS: Ultrasound guided thyroid biopsy. HISTORY: Thyroid mass. PROCEDURE: After informed consent was obtained and a time-out was performed, the patient was prepped and draped in usual sterile fashion over the anterior neck. Utilizing local anesthesia and sterile technique with a 25-gauge needle, access to the lesion was obtained. Four passes were made. The patient received no conscious sedation. The patient tolerated procedure well and left the department in good condition. IMPRESSION: Status post ultrasound guided biopsy of a thyroid nodule without immediate complication. Films reviewed , interpreted and dictated by Dr. Washington. Transcribed by Alesia Cartagena PA-C. Reviewed, Interpreted and Dictated by Abeba Washington MD Transcribed by MORRIS Clark Authenticated and . [facility]
== END 2025-03-29 23:59 | disposition home or self-care (01) ==
PROVIDERS: PCP Nurse Practitioner Family; Visit Provider Nurse Practitioner Family
DX: R93.89 Abnormal findings on diagnostic imaging of other specified body structures (principal); E04.1 Nontoxic single thyroid nodule
CPT/HCPCS: 10005; 88173; 88305

== ENCOUNTER 2025-04-03 07:50 | Outpatient (CLI) | payer MEDICARE, MEDICAID, SELFPAY ==
[2025-04-03 08:06] LABS: Hematocrit 41.0 % (42.0-52.0); Hemoglobin 13.0 g/dL (14.1-18.0); Immature Granulocytes % 0.2 %; Mean Corpuscular HGB Conc 31.7 g/dL (31.8-35.4); Mean Corpuscular Hemoglobin 28.6 pg (27.0-31.2); Mean Corpuscular Volume 90.3 fl (80-94); Nucleated Red Blood Cells % 0 %; Platelet Count 108 K/mm3 (142-424); Red Blood Count 4.54 M/mm3 (4.60-6.20); Red Cell Distribution Width-SD 50.1 fL; White Blood Count 8.2 K/mm3 (4.8-10.8)
[2025-04-03 08:39] LABS: Anion Gap 18.7 mEq/L (5-15); Blood Urea Nitrogen 20 mg/dl (9-20); Calcium 9.8 mg/dl (8.4-10.2); Carbon Dioxide 30 mmol/L (22.0-30.0); Chloride 100 mmol/L (98-107); Cholesterol 139 mg/dl (140-200); Creatinine,Serum 1.40 mg/dl (0.66-1.25); Estimated Glomerular Filt Rate 51 ml/min (>60); GFR (African American) 62 ML/MIN (>60); Glucose 92 mg/dl (74-100); HDL Cholesterol 49 mg/dl (40-60); Magnesium 2.1 mg/dl (1.6-2.3); Phosphorous 3.3 mg/dl (2.5-4.5); Potassium 4.7 mmoL/L (3.5-5.1); Sodium 144 mmol/L (136-145); Triglycerides 59 mg/dl (30-150)
[2025-04-03 08:56] LABS: Free T4 (Free Thyroxine) 1.28 ng/dl (0.78-2.19)
[2025-04-03 09:12] LABS: Thyroid Stimulating Hormone 1.71 uIU/mL (0.465-4.68)
[2025-04-03 09:31] LABS: Vitamin B12 864 pg/mL (239-931)
[2025-04-03 10:41] LABS: Hemoglobin A1C 6.8 % (4.0-6.0)
[2025-04-03 12:10] LABS: Iron 60 ug/dL (49-181)
[2025-04-03 12:21] LABS: Total Iron Binding Capacity 288 ug/dL (261-462)
[2025-04-03 12:47] LABS: Ferritin 114 ng/ml (17.9-464)
[2025-04-03 19:08] LABS: Folate > 20.00 ng/mL
== END 2025-04-03 23:59 | disposition home or self-care (01) ==
PROVIDERS: PCP Nurse Practitioner Family; Visit Provider Nurse Practitioner Family
DX: E78.5 Hyperlipidemia, unspecified (principal); I12.9 Hypertensive chronic kidney disease with stage 1 through stage 4 chronic kidney disease, or unspecified chronic kidney disease; N18.9 Chronic kidney disease, unspecified; E11.9 Type 2 diabetes mellitus without complications; E04.1 Nontoxic single thyroid nodule
CPT/HCPCS: 36415; 80048; 80061; 82607; 82728; 82746; 83036; 83540; 83550; 83735; 84100; 84439; 84443; 85025

== ENCOUNTER 2025-04-21 01:33 | Emergency (ER) | payer MEDICARE, MEDICAID, SELFPAY ==
[2025-04-21 00:56] VITALS: BP 135/68; PULSE 52; RESP 16; TEMP 36.6; O2SAT 96; BMI 23.5
--- NOTE | 2025-04-21 01:28 | CT_ITS ---
PROCEDURE INFORMATION: Exam: CT Cervical Spine Without Contrast Exam date and time: 04/21/2025 1:49 AM Age: 65 years old Clinical indication: Injury or trauma; Other: Fall on plavix TECHNIQUE: Imaging protocol: Computed tomography of the cervical spine without contrast. Radiation optimization: All CT scans at this facility use at least one of these dose optimization techniques: automated exposure control; mA and/or kV adjustment per patient size (includes targeted exams where dose is matched to clinical indication); or iterative reconstruction. COMPARISON: CT CERVICAL SPINE WO CON 03/09/2025 12:58 AM FINDINGS: Bones: Straightening of the expected cervical lordosis. No acute fracture. Vertebral body heights are maintained. Multilevel degenerative changes manifested as endplate osteophyte formation, facet arthropathy, uncovertebral hypertrophy, mild intervertebral disc space height loss. No severe spinal canal narrowing. Severe neural foraminal narrowing left C5/C6 and C6/C7 levels. Lungs: Lung apices are normal. Thyroid: Heterogeneous and nodular appearance of the thyroid gland, largest nodule measures 1.3 cm within the right thyroid lobe. Soft tissues: Mineralization of the nuchal ligament. IMPRESSION: 1. No acute osseous abnormality of the cervical spine.Recommend correlation with history/physical exam and if clinical concern persists consider further evaluation with MRI. 2. Heterogeneous appearance of the thyroid with multiple nodules, largest measuring 1.3 cm consider further evaluation with nonemergent ultrasound for complete characterization if not already obtained. 3. Other findings as above. COMMENTS: Consistent with the [employer]'s Incidental Findings Committee white paper (J Am Francisco Javier Radiol 2015): In patients aged 35 years and older with an incidental thyroid nodule equal to or greater than 1.[address], MRI or extrathyroidal US, further evaluation with dedicated thyroid US is recommended for patients with normal life expectancy and without comorbidities. For smaller nodules without suspicious features, no further evaluation or follow up is recommended.
--- NOTE | 2025-04-21 01:28 | CT_ITS ---
PROCEDURE INFORMATION: Exam: CT Head Without Contrast Exam date and time: 04/21/2025 1:47 AM Age: 65 years old Clinical indication: Injury or trauma; Other: Fall on plavix TECHNIQUE: Imaging protocol: Computed tomography of the head without contrast. Radiation optimization: All CT scans at this facility use at least one of these dose optimization techniques: automated exposure control; mA and/or kV adjustment per patient size (includes targeted exams where dose is matched to clinical indication); or iterative reconstruction. COMPARISON: CT HEAD/BRAIN WO CON 03/09/2025 12:55 AM FINDINGS: Brain: There is diffuse enlargement CSF containing spaces consistent with global parenchymal volume loss. Encephalomalacia within the bilateral frontal lobes as well as the left occipital lobe, unchanged. 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 Evidence of left basal ganglia lacunar infarcts; unchanged. No acute intracranial hemorrhage. No evidence of large acute territorial infarct or significant cerebral edema. No midline shift or significant mass effect. Cerebral ventricles: No hydrocephalus. Paranasal sinuses: The paranasal sinuses are clear. Mastoid air cells: The mastoid air cells are clear. Orbital cavities: The orbits are unremarkable. Bones: No acute fracture. Soft tissues: The superficial soft tissues are normal. IMPRESSION: 1. No acute intracranial hemorrhage or large territorial infarct recommend correlation with history/physical exam and if clinical concern persists consider further evaluation with MRI. 2. Other findings as above.
--- NOTE | 2025-04-21 01:37 | HMH.EDGENADL ---
Discharge Plan Disposition Patient Disposition: Xfer [facility] Condition: Good Prescriptions Prescriptions: No Action baclofen 5 mg tablet 5 mg PO HS clopidogrel [Plavix] 75 mg tablet 75 mg PO DAILY divalproex [Depakote] 250 mg tablet,delayed release (DR/EC) 250 mg PO BID docusate sodium 100 mg capsule 100 mg PO DAILY fluphenazine HCl 5 mg tablet 5 mg PO TID fluticasone propionate 50 mcg/actuation spray,suspension 1 spray intranasal DAILY Rx Instructions: administer into each nostril Ingrezza 80 mg capsule 80 mg PO DAILY melatonin 10 mg capsule 10 mg PO HS metoprolol tartrate 25 mg tablet 25 mg PO BID prazosin 1 mg capsule 1 mg PO HS sertraline 100 mg tablet 100 mg PO DAILY trazodone 100 mg tablet 100 mg PO HS albuterol sulfate 90 mcg/actuation HFA aerosol inhaler 2 puff inhalation Q6H PRN (Reason: copd) dextromethorphan polistirex [Cough DM ER] 30 mg/5 mL suspension,extended rel 12 hr 5 ml PO Q12H PRN (Reason: Cough) acetaminophen 500 mg tablet 500 mg PO Q6H PRN (Reason: pain/fever) cyclobenzaprine 10 mg tablet 10 mg PO BID PRN (Reason: Muscle Spasm) diphenhydramine HCl [Allergy Relief(diphenhydramin)] 25 mg capsule 25 mg PO Q8H PRN (Reason: allergies) loperamide 2 mg capsule 2 mg PO Q6H PRN (Reason: diarhhea) magnesium hydroxide [Milk of Magnesia] 400 mg/5 mL suspension 2,400 mg PO Q4HP PRN (Reason: Constipation) acetaminophen 500 mg tablet 500 mg PO QHS sertraline 50 mg tablet 50 mg PO DAILY multivitamin Tablet 1 tab PO DAILY irbesartan 150 mg tablet 150 mg PO DAILY Qty: 90 3RF amlodipine 10 mg tablet 10 mg PO DAILY Qty: 90 3RF tramadol 50 mg tablet 50 mg PO Q8H PRN (Reason: pain) Qty: 90 5RF clonazepam 0.5 mg tablet 0.5 mg PO HS Qty: 30 5RF gabapentin 100 mg capsule 100 mg PO BID Qty: 60 5RF Referrals Follow up/Referrals: Naveen Cramer MD [Primary Care Provider, Family Practice] - See instructions Activity Restrictions/Add. Instructions Additional Instructions/Restrictions: Gerber was evaluated in the ER and is appropriate for discharge at this time. Continue all home medications as previously prescribed. Follow-up with your primary care doctor for reevaluation in 2 to 3 days. They should reevaluate the patient and follow-up his thyroid nodules. Return to the ER with new, worsening, or otherwise concerning symptoms. Clinical Impressions Clinical Impression: Fall Print Language Print Language: Greek Discharge ED Provider: Enid Hernandez Adult HPI General Chief complaint: Fall Stated complaint: fall Time Seen by Provider: 04/21/25 01:37 Mode of Arrival: EMS Source of Information: EMS Description of Symptoms (Recalled from ER Triage Doc. by RN): pt presents via EMS with no complaints voiced, EMS reports that patient's room mate at facility reported that patient fell out of his wheelchair approx 1999 yesterday, per papers patient does take blood thinners, no obvious deformity noted to head. Pt is confused at baseline with no change in mental status. Pt presents with c-collar in place per EMS. History of Present Illness HPI narrative: 65-year-old male presents to the ER with EMS from [facility] concern for fall. Reportedly patient fell more than 4 hours prior to arrival. The fall was only witnessed by his roommate. Roommate helps provide history stating the patient seemed to slip and pop near his bed and struck his head on the headboard. No loss of consciousness. When [facility] called report to nursing staff they reported the patient had a goose egg but no is appreciated. They do report that the patient is at his mental baseline which is slightly confused, disoriented to time. Patient reports some pain in his neck but no other complaints or concerns. He is moving all extremities equally. EMS placed c-collar prior to arrival. They report no medications administered prior to arrival. Patient denies chest pain or difficulty breathing, no dizziness, numbness, tingling, or weakness. No other complaints or concerns. Patient reports he can walk but also uses a wheelchair. Related Data Home Medications ?Medication ?Instructions ?Recorded ?Confirmed albuterol sulfate 90 mcg/actuation 2 puff inhalation Q6H PRN copd 10/25/24 04/09/25 aerosol inhaler baclofen 5 mg tablet 5 mg PO HS 10/25/24 04/09/25 clopidogrel 75 mg tablet (Plavix) 75 mg PO DAILY 10/25/24 04/09/25 divalproex 250 mg tablet,delayed 250 mg PO BID 10/25/24 04/09/25 release (Depakote) docusate sodium 100 mg capsule 100 mg PO DAILY 10/25/24 04/09/25 fluphenazine HCl 5 mg tablet 5 mg PO TID 10/25/24 04/09/25 fluticasone propionate 50 1 spray intranasal DAILY 10/25/24 04/09/25 mcg/actuation nasal spray,suspension melatonin 10 mg capsule 10 mg PO HS Sleep 10/25/24 04/09/25 metoprolol tartrate 25 mg tablet 25 mg PO BID 10/25/24 04/09/25 prazosin 1 mg capsule 1 mg PO HS 10/25/24 04/09/25 sertraline 100 mg tablet 100 mg PO DAILY 10/25/24 04/09/25 trazodone 100 mg tablet 100 mg PO HS 10/25/24 04/09/25 valbenazine 80 mg capsule 80 mg PO DAILY 10/25/24 04/09/25 (Ingrezza) acetaminophen 500 mg tablet 500 mg PO Q6H PRN pain/fever 01/29/25 04/09/25 acetaminophen 500 mg tablet 500 mg PO QHS 01/29/25 04/09/25 cyclobenzaprine 10 mg tablet 10 mg PO BID PRN Muscle Spasm 01/29/25 04/09/25 dextromethorphan polistirex 30 5 ml PO Q12H PRN Cough 01/29/25 04/09/25 mg/5 mL oral susp ext.release 12hr (Cough DM ER) diphenhydramine HCl 25 mg capsule 25 mg PO Q8H PRN allergies 01/29/25 04/09/25 (Allergy Relief (diphenhydramine)) loperamide 2 mg capsule 2 mg PO Q6H PRN diarhhea 01/29/25 04/09/25 magnesium hydroxide 400 mg/5 mL 2,400 mg PO Q4HP PRN Constipation 01/29/25 04/09/25 oral suspension (Milk of Magnesia) multivitamin 1 tab PO DAILY 01/29/25 04/09/25 sertraline 50 mg tablet 50 mg PO DAILY 01/29/25 04/09/25 Previous Rx's ?Medication ?Instructions ?Recorded amlodipine 10 mg tablet 10 mg PO DAILY #90 tabs 12/18/24 tramadol 50 mg tablet 50 mg PO Q8H PRN pain #90 tabs 01/25/25 irbesartan 150 mg tablet 150 mg PO DAILY #90 tabs 04/09/25 clonazepam 0.5 mg tablet 0.5 mg PO HS #30 tabs 04/15/25 gabapentin 100 mg capsule 100 mg PO BID #60 caps 04/15/25 Allergies Allergy/AdvReac Type Severity Reaction Status Date / Time haloperidol (From Haldol) Allergy Unknown Verified 04/09/25 11:12 allergy reaction ibuprofen Allergy Unknown Verified 04/09/25 11:12 allergy reaction PFSH PFS Disclaimer: The information contained in this section may have been updated after the patient was seen, as this information can be updated by other users. Medical History (Updated 04/21/25 @ 03:03 by Enid Hernandez MD) Renal mass Tardive dyskinesia Right carotid bruit Neurocognitive disorder Chronic neck pain Tobacco dependence Nodule of left lung COPD (chronic obstructive pulmonary disease) Alcoholism Chronic kidney disease Insomnia Schizophrenia Anxiety Seizure Hyperlipidemia HTN (hypertension) Peripheral vascular disease Diabetes mellitus Surgical History S/P femoral-popliteal bypass surgery (~08/2017) Family History Other No significant family history Social History Smoking Status: Never smoker alcohol intake: never current occupational status: disabled Travel in the last 8 weeks?: None household members: none housing: half-way lives independently: No caffeine: No Have you lived/traveled outside [place] in past 30 days?: No Contact w/someone who lives/traveled outside [place] past 30 days?: No Exposure to someone with infectious disease in past 14 days?: No Do you have a fever (greater than 100.4 F or 38 C)?: No Have you tested positive for COVID-19?: No Exposed to someone with COVID-19 in past 14 days?: No Do you have a sore throat?: No Do you have a cough?: No Do you have any weakness?: No Do you have any diarrhea?: No Are you experiencing any unusual bleeding?: No Do you have any muscle aches/pain?: Yes Do you have any abdominal pain?: No Are you experiencing loss of taste or smell?: No Other Medical History Have you received the Pneumonia Vaccine: Yes (12/24/24) ROS Obtained: Yes Systems reviewed as appropriate & no additional complaints except as documented Per HPI Physical Exam General General appearance: alert and in no apparent distress Comment: Mildly disheveled but nontoxic-appearing Head Head exam: atraumatic, normocephalic and other (No evidence of traumatic injury, no swelling, deformity, or hematoma) Eye Eye exam: Present PERRL, EOMI, conjunctival redness and discharge (Bilateral, right worse than left) ENT ENT exam: Present mucous membranes moist Neck Neck exam: Present normal inspection and other (C-collar in place, no tenderness) Chest Chest inspection: Present symmetric chest wall rise Respiratory Respiratory exam: Present normal lung sounds bilaterally; Absent respiratory distress, wheezes or stridor Cardiovascular Cardiovascular exam: Present regular rate and normal rhythm Abdominal Exam Abdominal exam: Present soft; Absent distention or tenderness Extremities Exam Extremities exam: Present full ROM, normal capillary refill and other (No evidence of injury on the extremities, full range of motion, no tenderness, bruising, or deformity. Pelvis stable); Absent tenderness, edema or joint swelling Back Exam Back exam: Absent CVA tenderness (R), CVA tenderness (L), paraspinal tenderness or vertebral tenderness Neurological Exam Neurological exam: Present alert; Absent oriented X3 (Oriented to self and location, disoriented to year, reportedly at baseline according to nursing facility) or motor sensory deficit (Equal strength and sensation in all extremities, full) Psychiatric Psychiatric exam: Present normal affect and normal mood Skin Skin exam: Present warm and dry Medical Decision Making Medical Records Medical records reviewed: Yes I reviewed the patient's medical records. Screening: Per USPSTF and CDC recommendations, given the prevalence of disease in our region, it is our hospital?s policy to screen for HIV and viral Hepatitis for all patients aged 18 and over and those with ongoing risk factors. Jamie Inquiry Pt receiving controlled substance: No Vital Signs: 04/21/25 00:56 04/21/25 02:05 Temperature 97.8 F Temperature Source Oral Pulse Rate [Radial] 52 L Respiratory Rate 16 Blood Pressure [Right Radial Artery] 135/68 Blood Pressure Mean [Right Radial Artery] 90 Blood Pressure Position [Right Radial Artery] Sitting 02 Sat by Pulse Oximetry 96 96 Oxygen Delivery Method Room Air Room Air Orders (Tests/Meds): ED MEDICATIONS Discontinued Medications Generic Name Dose Route Start Last Admin Trade Name Isaura PRN Reason Stop Dose Admin Acetaminophen 500 mg 04/21/25 01:35 Acetaminophen 500mg Tab PO 04/21/25 01:36 ONCE ONE ORDERS Category Date Time Status CT cervical spine wo con Stat Cat Scan 04/21/25 01:[address] head/brain wo con Stat Cat Scan 04/21/25 01:28 Completed Medical Decision Narrative: In summary, this 65-year-old male with history of BPH, tardive dyskinesia, COPD, CKD, hypertension, hyperlipidemia, peripheral vascular disease, diabetes, chronic neck pain, neurocognitive disorder presents to the emergency department today with concerns of potential injury after fall multiple hours prior to arrival from half-way. On initial evaluation patient is hemodynamically stable, afebrile, alert, oriented to his baseline which is to self and location, disoriented to time, he only complains of mild neck pain but has no tenderness, c-collar is in place, no neurologic deficits, no other acute abnormalities on exam. Differential diagnosis includes but is not limited to intracranial bleed, mass, or midline shift, cervical spine injury, muscle spasm, among others. Based on these concerns, I ordered CT head and C-spine, based on reassuring exam and history as well as stable vitals multiple hours after the fall I do not believe further workup is indicated at this time. Patient received Tylenol for treatment. CT head and C-spine personally interpreted demonstrate no new acute intracranial abnormality, there is evidence of old stroke, no acute osseous injury in the cervical spine. See radiology reads for final interpretations. Radiology read does comment on thyroid nodules. These are previously known and not I gave instructions for these to be followed up outpatient by PCP. On reassessment patient is resting comfortably, c-collar cleared by me. No pain or tenderness, full range of motion, no paresthesias. Repeat examination does not demonstrate any other findings of injury or abnormalities. Patient is appropriate for discharge at this time. Instructions were given to patient and [facility] about symptomatic monitoring and management, follow-up, and return precautions. They indicated understanding and the patient was discharged in stable condition. EMS took the patient back to his facility. Critical Care Critical Care Time Critical Care Time: No
[2025-04-21 02:05] VITALS: O2SAT 96
[2025-04-21] MEDS: ACETAMINOPHEN 500MG TAB 500 MG PO (03:00)
[2025-04-21 03:14] VITALS: BP 135/67; PULSE 60; RESP 15; TEMP 36.6; O2SAT 95
== END 2025-04-21 03:21 ==
PROVIDERS: Emergency Provider Emergency Medicine; PCP Family Medicine
DX: R41.0 Disorientation, unspecified (principal); W05.0XXA Fall from non-moving wheelchair, initial encounter; G47.00 Insomnia, unspecified; R20.9 Unspecified disturbances of skin sensation; E78.5 Hyperlipidemia, unspecified; I10 Essential (primary) hypertension
CPT/HCPCS: 70450; 72125; 99284

== ENCOUNTER 2025-06-06 09:06 | Outpatient (CLI) | payer MEDICARE, MEDICAID, SELFPAY ==
--- NOTE | 2025-06-06 09:30 | CT_ITS ---
FINAL REPORT TECHNIQUE: IV contrast enhanced exam This study was performed with techniques to keep radiation doses as low as reasonably achievable, (ALARA). Individualized dose reduction techniques using automated exposure control or adjustment of mA and/or kV according to the patient's size were employed. CLINICAL HISTORY: Renal mass FINDINGS: Abdomen: Lung bases are clear. The gallbladder contains gallstones. Liver has an unremarkable CT appearance. The spleen, pancreas and adrenal glands are unremarkable. Multiple right renal lesions are identified. There is a posterior lesion in the right kidney that demonstrates a density of 39 Hounsfield units, denser than a simple cyst. The lesion measures 20 mm, was previously 23 mm, strongly favored to represent a complex cyst. There are several right renal lesions consistent with simple cysts measuring up to 12 mm in size. There is a posterior left mid renal lesion, slightly denser than that of a simple cyst, measuring 10 mm, unchanged. There is a simple cyst of the anterior left mid kidney. No bowel obstruction or fluid collection is seen. There is a mild abdominal aortic aneurysm measuring 31 mm, stable from prior exam. Pelvis: The appendix is normal in appearance. Pelvic bowel loops are unremarkable. The bladder is distended. 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 A left iliac stent is patent with a patent femoral-femoral bypass graft. No fluid collection or adenopathy is seen. IMPRESSION: 1. Multiple bilateral renal lesions, most of which are simple cysts, with complex cysts likely accounting for the larger lesions in both kidneys. 2. Abdominal aortic aneurysm, stable, with chronic right iliac artery occlusion. Reviewed, Interpreted and Dictated by Abeba Washington MD Transcribed by Mindy Camacho Authenticated and [facility]
[2025-06-06 09:32] LABS: Blood Urea Nitrogen 20 mg/dl (9-20); Creatinine,Serum 1.30 mg/dl (0.66-1.25); Estimated Glomerular Filt Rate 56 ml/min (>60); GFR (African American) 67 ML/MIN (>60)
[2025-06-06] MEDS: SODIUM CHLORIDE 0.9% 10ML SYR (RAD ONLY) 10 ML IV (10:04)
[2025-06-06] MEDS: IOPAMIDOL-370 (76%);100ML BOTTLE 75 ML IV (10:05)
== END 2025-06-06 23:59 | disposition home or self-care (01) ==
LOC: RAD 09:07
PROVIDERS: PCP Family Medicine; Visit Provider Urology
DX: I71.40 Abdominal aortic aneurysm, without rupture, unspecified (principal); I74.5 Embolism and thrombosis of iliac artery; N28.89 Other specified disorders of kidney and ureter; N28.1 Cyst of kidney, acquired
CPT/HCPCS: 36415; 74177; 82565; 84520; Q9967

== ENCOUNTER 2025-07-12 07:38 | Outpatient (CLI) | payer MEDICARE, MEDICAID, SELFPAY ==
--- OUTSIDE RECORDS SUMMARY | 2025-07-12 07:40 | XMS_ITS ---
Author Organization Unknown ENCOUNTERS Encounter Performer Location Date Diagnosis Diagnosis Status Emergency [facility] [address] [place] [address] [id number] XSNF Pre Admit [facility] [address] [place] [address] [id number] Emergency [facility] [address] [place] [address] [id number] OSMEL Pre Admit [facility] [address] [place] [address] [id number] *Note: Encounters from your own facility or health system may be excluded. Allergies, Adverse Reactions, Alerts Allergen Type Severity Identification Date haloperidol drug allergy [id number] ibuprofen drug allergy [id number] Medications Name Date Quantity Days Supplied GPI Number
[2025-07-12 11:14] LABS: Valproic Acid, (Depakene) 29.2 ug/ml (50-100)
== END 2025-07-12 23:59 | disposition home or self-care (01) ==
PROVIDERS: PCP Nurse Practitioner Family; Visit Provider Nurse Practitioner Family
DX: N28.1 Cyst of kidney, acquired (principal)
CPT/HCPCS: 36415; 80164

== ENCOUNTER 2025-07-17 09:26 | Outpatient (CLI) | payer MEDICARE, MEDICAID, SELFPAY ==
[2025-07-17 10:33] LABS: Anion Gap 12.3 mEq/L (5-15); Blood Urea Nitrogen 23 mg/dl (9-20); Calcium 8.8 mg/dl (8.4-10.2); Carbon Dioxide 26 mmol/L (22.0-30.0); Chloride 105 mmol/L (98-107); Creatinine,Serum 1.40 mg/dl (0.66-1.25); Estimated Glomerular Filt Rate 51 ml/min (>60); GFR (African American) 62 ML/MIN (>60); Glucose 75 mg/dl (74-100); Potassium 4.3 mmoL/L (3.5-5.1); Sodium 139 mmol/L (136-145)
[2025-07-17 12:46] LABS: Hemoglobin A1C 5.8 % (4.0-6.0)
== END 2025-07-17 23:59 | disposition home or self-care (01) ==
PROVIDERS: PCP Nurse Practitioner Family; Visit Provider Nurse Practitioner Family
DX: E11.9 Type 2 diabetes mellitus without complications (principal)
CPT/HCPCS: 36415; 80048; 83036

== ENCOUNTER 2025-08-05 23:29 | Emergency (ER) | payer MEDICARE, MEDICAID, SELFPAY ==
--- NOTE | 2025-08-05 23:58 | XR_ITS ---
PROCEDURE INFORMATION: Exam: XR Chest Exam date and time: 08/06/2025 12:07 AM Age: 65 years old Clinical indication: Injury or trauma; Fall; Additional info: Fall on thinners TECHNIQUE: Imaging protocol: Radiologic exam of the chest. Views: 1 view. COMPARISON: CT CHEST WO CON 03/09/2025 1:09 AM FINDINGS: Lungs: Unremarkable. No consolidation. Pleural spaces: Unremarkable. No pleural effusion. No pneumothorax. Heart/Mediastinum: Unremarkable. No cardiomegaly. Bones/joints: Unremarkable. IMPRESSION: No acute findings.
--- NOTE | 2025-08-05 23:58 | CT_ITS ---
PROCEDURE INFORMATION: Exam: CT Head Without Contrast Exam date and time: 08/06/2025 12:15 AM Age: 65 years old Clinical indication: Injury or trauma; Fall; Additional info: Fall takes plavix TECHNIQUE: Imaging protocol: Computed tomography of the head without contrast. Radiation optimization: All CT scans at this facility use at least one of these dose optimization techniques: automated exposure control; mA and/or kV adjustment per patient size (includes targeted exams where dose is matched to clinical indication); or iterative reconstruction. COMPARISON: CT HEAD/BRAIN WO CON 04/21/2025 1:47 AM FINDINGS: Brain: Chronic encephalomalacia and gliosis is present in the bilateral frontal, bilateral parietal, and bilateral occipital lobes. A chronic lacunar infarct is noted in the anterior left thalamus. There is no acute intracranial hemorrhage, mass effect, or midline shift. Moderate cerebral substance loss is noted. Cerebral ventricles: No hydrocephalus. Paranasal sinuses: There is no acute sinusitis. Mastoid air cells: Visualized mastoid air cells are well aerated. Orbital cavities: The visualized orbits appear unremarkable. Bones: Unremarkable. No acute fracture. Soft tissues: Unremarkable. Vasculature: Atherosclerotic calcifications are seen involving the cavernous carotid arteries. IMPRESSION: 1. No acute intracranial abnormality. 2. Chronic findings as discussed above.
--- NOTE | 2025-08-05 23:58 | XR_ITS ---
PROCEDURE INFORMATION: Exam: XR Pelvis Exam date and time: 08/06/2025 12:07 AM Age: 65 years old Clinical indication: Injury or trauma; Fall; Additional info: Fall on thinners TECHNIQUE: Imaging protocol: Radiologic exam of the pelvis. Views: 1 or 2 view. COMPARISON: CT ABDOMEN PELVIS W CON 06/06/2025 9:55 AM FINDINGS: Tubes, catheters and devices: Clips seen in bilateral inguinal canals. Bones/joints: Advanced degenerative change bilaterally. No visualized fracture. Soft tissues: Unremarkable. Vasculature: Vascular stent noted in the left hemipelvis. IMPRESSION: No acute findings.
--- NOTE | 2025-08-05 23:58 | CT_ITS ---
PROCEDURE INFORMATION: Exam: CT Cervical Spine Without Contrast Exam date and time: 08/06/2025 12:17 AM Age: 65 years old Clinical indication: Injury or trauma; Fall; Additional info: Fall takes plavix TECHNIQUE: Imaging protocol: Computed tomography of the cervical spine without contrast. Radiation optimization: All CT scans at this facility use at least one of these dose optimization techniques: automated exposure control; mA and/or kV adjustment per patient size (includes targeted exams where dose is matched to clinical indication); or iterative reconstruction. COMPARISON: CT CERVICAL SPINE WO CON 03/09/2025 12:58 AM FINDINGS: Bones: Bone mineralization appears decreased, suggestive of osteopenia. No acute cervical spine fracture is identified. Alignment is anatomic. Severe degenerative changes of the cervical spine are present. There is no severe spinal canal stenosis. Multilevel neural foraminal narrowing from uncinate spurring and facet arthropathy is noted. Lungs: The lung apices are clear. Thyroid: A 1.8 cm nonspecific right thyroid nodule is noted. There is a 6 mm calcified left thyroid nodule. Vasculature: Atherosclerotic calcifications are present at the carotid bifurcations. Soft tissues: Unremarkable. IMPRESSION: 1. No acute cervical spine fracture. 2. Chronic findings as discussed above. COMMENTS: Consistent with the [place] [employer]'s Incidental Findings Committee white paper (J Am Francisco Javier Radiol 2015): In patients aged 35 years and older with an incidental thyroid nodule equal to or greater than 1.[address], MRI or extrathyroidal US, further evaluation with dedicated thyroid US is recommended for patients with normal life expectancy and without comorbidities. For smaller nodules without suspicious features, no further evaluation or follow up is recommended.
[2025-08-06] VITALS: BP 116/59; PULSE 57; O2SAT 95
[2025-08-06 00:09] VITALS: BP 116/59; PULSE 68; RESP 20; TEMP 36.8; O2SAT 97; BMI 25.8
[2025-08-06 00:13] LABS: VBG HCO3 27.6 mmol/L (23-30); VBG PCO2 52.6 mmol/L (35-51); VBG PH 7.34 mmol/L (7.31-7.41); VBG PO2 39.8 mmol/L (28-40)
[2025-08-06 00:14] LABS: Lactate Venous 2.3 mmol/L (0.4-2.0)
[2025-08-06 00:21] LABS: Chloride 100 mmol/L (98-107); Potassium 4.2 mmoL/L (3.5-5.1)
[2025-08-06 00:22] LABS: Alanine Aminotransferase 12 U/L (12-78); Alkaline Phosphatase 87 U/L (38-126); Aspartate Amino Transferase 25 U/L (17-59); Bilirubin,Total 0.4 mg/dl (0.2-1.3); Blood Urea Nitrogen 24 mg/dl (9-20); Calcium 9.2 mg/dl (8.4-10.2); Carbon Dioxide 31 mmol/L (22.0-30.0); Creatinine Clearance Estimated 54 mL/min (50-200); Creatinine,Serum 1.60 mg/dl (0.66-1.25); Estimated Glomerular Filt Rate 44 ml/min (>60); GFR (African American) 53 ML/MIN (>60); Glucose 100 mg/dl (74-100); Total Protein,Serum 7.1 g/dl (6.3-8.2)
[2025-08-06 00:25] LABS: Hematocrit 41.6 % (42.0-52.0); Hemoglobin 13.7 g/dL (14.1-18.0); Immature Granulocytes % 0.4 %; Mean Corpuscular HGB Conc 32.9 g/dL (31.8-35.4); Mean Corpuscular Hemoglobin 29.5 pg (27.0-31.2); Mean Corpuscular Volume 89.7 fl (80-94); Nucleated Red Blood Cells % 0 %; Platelet Count 123 K/mm3 (142-424); Red Blood Count 4.64 M/mm3 (4.60-6.20); Red Cell Distribution Width-SD 45.4 fL; White Blood Count 9.0 K/mm3 (4.8-10.8)
[2025-08-06 00:26] LABS: Anion Gap 16.3 mEq/L (5-15); Sodium 143 mmol/L (136-145)
[2025-08-06] MEDS: 0.9 % SODIUM CHLORIDE 1000ML 1,000 ML 999 ML IV (00:41)
--- NOTE | 2025-08-06 00:44 | HMH.EDGENADL ---
Discharge Plan Disposition Patient Disposition: Xfer [facility] Condition: Good Prescriptions Prescriptions: No Action baclofen 5 mg tablet 5 mg PO HS clopidogrel [Plavix] 75 mg tablet 75 mg PO DAILY docusate sodium 100 mg capsule 100 mg PO DAILY fluticasone propionate 50 mcg/actuation spray,suspension 1 spray intranasal DAILY Rx Instructions: administer into each nostril Ingrezza 80 mg capsule 80 mg PO DAILY melatonin 10 mg capsule 10 mg PO HS metoprolol tartrate 25 mg tablet 25 mg PO BID prazosin 1 mg capsule 1 mg PO HS sertraline 100 mg tablet 100 mg PO DAILY trazodone 100 mg tablet 100 mg PO HS albuterol sulfate 90 mcg/actuation HFA aerosol inhaler 2 puff inhalation Q6H PRN (Reason: copd) divalproex [Depakote] 250 mg tablet,delayed release (DR/EC) 250 mg PO TID fluphenazine HCl 5 mg tablet 5 mg PO BID dextromethorphan polistirex [Cough DM ER] 30 mg/5 mL suspension,extended rel 12 hr 5 ml PO Q12H PRN (Reason: Cough) acetaminophen 500 mg tablet 500 mg PO Q6H PRN (Reason: pain/fever) cyclobenzaprine 10 mg tablet 10 mg PO BID PRN (Reason: Muscle Spasm) loperamide 2 mg capsule 2 mg PO Q6H PRN (Reason: diarhhea) magnesium hydroxide [Milk of Magnesia] 400 mg/5 mL suspension 2,400 mg PO Q4HP PRN (Reason: Constipation) acetaminophen 500 mg tablet 500 mg PO QHS sertraline 50 mg tablet 50 mg PO DAILY multivitamin Tablet 1 tab PO DAILY irbesartan 150 mg tablet 150 mg PO DAILY Qty: 90 3RF Kerendia 10 mg tablet 10 mg PO DAILY Qty: 30 2RF amlodipine 10 mg tablet 10 mg PO DAILY Qty: 90 3RF tramadol 50 mg tablet 50 mg PO Q8H PRN (Reason: pain) Qty: 90 5RF clonazepam 0.5 mg tablet 0.5 mg PO HS Qty: 30 5RF gabapentin 100 mg capsule 100 mg PO BID Qty: 60 5RF Referrals Follow up/Referrals: Naveen Cramer MD [Primary Care Provider, Family Practice] - See instructions Referral Note: follow up thyroid nodule incidentally found on CT cervical spine Activity Restrictions/Add. Instructions Additional Instructions/Restrictions: Gerber was evaluated in the ER and is believed to be appropriate for discharge at this time. He can continue all home medications as previously prescribed. He needs to follow-up with primary care to reevaluate the thyroid nodule. Please make an appointment with primary care for reevaluation in 1 to 2 days. Return to the ER with any new, worsening, or otherwise concerning symptoms. Clinical Impressions Clinical Impression: Fall, Thyroid nodule Print Language Print Language: [place] Islander Discharge ED Provider: Enid Hernandez General Adult HPI General Chief complaint: Fall Stated complaint: fall Time Seen by Provider: 08/05/25 23:49 Mode of Arrival: EMS Source of Information: Patient and EMS Description of Symptoms (Recalled from ER Triage Doc. by RN): per EMS patient fell and was found on the floor by nursing facility staff. patient is from [facility]. patient has no complaints and is alert and oriented. History of Present Illness HPI narrative: 65-year-old male who lives at [facility] and has a history of BPH, tardive dyskinesia, COPD, CKD, diabetes, peripheral vascular disease, dementia and takes Plavix daily presents to the ER from the [place] [facility] via EMS for concerns of fall. Patient experienced a mechanical, ground-level fall landing on his bottom. Reportedly did not strike his head or lose consciousness. He was found on the floor by nursing staff immediately after the fall. In report from the [place] [facility] they report patient is slightly slower to answer questions in the last 24 hours that he typically is but is otherwise at his baseline. Patient reports no complaints, no pain. He is oriented and can tell me that he fell and landed on his bottom, did not strike his head. He transferred with 1 person assist from the stretcher to the bed. Specifically the patient denies headache, neck pain, back pain, nausea, abdominal pain, chest pain, difficulty breathing, pain in the extremities. Related Data Home Medications ?Medication ?Instructions ?Recorded ?Confirmed albuterol sulfate 90 mcg/actuation 2 puff inhalation Q6H PRN copd 10/25/24 07/24/25 aerosol inhaler baclofen 5 mg tablet 5 mg PO HS 10/25/24 07/24/25 clopidogrel 75 mg tablet (Plavix) 75 mg PO DAILY 10/25/24 07/24/25 docusate sodium 100 mg capsule 100 mg PO DAILY 10/25/24 07/24/25 fluticasone propionate 50 1 spray intranasal DAILY 10/25/24 07/24/25 mcg/actuation nasal spray,suspension melatonin 10 mg capsule 10 mg PO HS Sleep 10/25/24 07/24/25 metoprolol tartrate 25 mg tablet 25 mg PO BID 10/25/24 07/24/25 prazosin 1 mg capsule 1 mg PO HS 10/25/24 07/24/25 sertraline 100 mg tablet 100 mg PO DAILY 10/25/24 07/24/25 trazodone 100 mg tablet 100 mg PO HS 10/25/24 07/24/25 valbenazine 80 mg capsule 80 mg PO DAILY 10/25/24 07/24/25 (Ingrezza) acetaminophen 500 mg tablet 500 mg PO Q6H PRN pain/fever 01/29/25 07/24/25 acetaminophen 500 mg tablet 500 mg PO QHS 01/29/25 07/24/25 cyclobenzaprine 10 mg tablet 10 mg PO BID PRN Muscle Spasm 01/29/25 07/24/25 dextromethorphan polistirex 30 5 ml PO Q12H PRN Cough 01/29/25 07/24/25 mg/5 mL oral susp ext.release 12hr (Cough DM ER) loperamide 2 mg capsule 2 mg PO Q6H PRN diarhhea 01/29/25 07/24/25 magnesium hydroxide 400 mg/5 mL 2,400 mg PO Q4HP PRN Constipation 01/29/25 07/24/25 oral suspension (Milk of Magnesia) multivitamin 1 tab PO DAILY 01/29/25 07/24/25 sertraline 50 mg tablet 50 mg PO DAILY 01/29/25 07/24/25 divalproex 250 mg tablet,delayed 250 mg PO TID 07/24/25 07/24/25 release (Depakote) fluphenazine HCl 5 mg tablet 5 mg PO BID 07/24/25 07/24/25 Previous Rx's ?Medication ?Instructions ?Recorded amlodipine 10 mg tablet 10 mg PO DAILY #90 tabs 12/18/24 tramadol 50 mg tablet 50 mg PO Q8H PRN pain #90 tabs 01/25/25 irbesartan 150 mg tablet 150 mg PO DAILY #90 tabs 04/09/25 clonazepam 0.5 mg tablet 0.5 mg PO HS #30 tabs 04/15/25 gabapentin 100 mg capsule 100 mg PO BID #60 caps 04/15/25 finerenone 10 mg tablet (Kerendia) 10 mg PO DAILY #30 tabs 06/18/25 Allergies Allergy/AdvReac Type Severity Reaction Status Date / Time haloperidol (From Haldol) Allergy Unknown Verified 06/18/25 14:28 allergy reaction ibuprofen Allergy Unknown Verified 06/18/25 14:28 allergy reaction PFSH [facility] Disclaimer: The information contained in this section may have been updated after the patient was seen, as this information can be updated by other users. Medical History (Updated 08/06/25 @ 00:59 by Enid Hernandez MD) Occlusion of iliac artery Cholelithiasis Abdominal aortic aneurysm Nephrolithiasis Right thyroid nodule RLS (restless legs syndrome) Hematuria BPH (benign prostatic hyperplasia) Tardive dyskinesia Right carotid bruit Neurocognitive disorder Chronic neck pain Tobacco dependence Nodule of left lung COPD (chronic obstructive pulmonary disease) Alcoholism Chronic kidney disease Insomnia Schizophrenia Anxiety Seizure Hyperlipidemia HTN (hypertension) Peripheral vascular disease Diabetes mellitus Surgical History S/P insertion of iliac artery stent S/P femoral-popliteal bypass surgery (~08/2017) Family History Other No significant family history Social History Smoking Status: Never smoker alcohol intake: never current occupational status: disabled Travel in the last 8 weeks?: None household members: none housing: [facility] lives independently: No caffeine: No Have you lived/traveled outside US in past 30 days?: No Contact w/someone who lives/traveled outside US past 30 days?: No Exposure to someone with infectious disease in past 14 days?: No Do you have a fever (greater than 100.4 F or 38 C)?: No Have you tested positive for COVID-19?: No Exposed to someone with COVID-19 in past 14 days?: No Do you have a sore throat?: No Do you have a cough?: No Do you have any weakness?: No Do you have any diarrhea?: No Are you experiencing any unusual bleeding?: No Do you have any muscle aches/pain?: No Do you have any abdominal pain?: No Are you experiencing loss of taste or smell?: No Other Medical History Have you received the Pneumonia Vaccine: Yes (12/24/24) ROS Obtained: Yes Systems reviewed as appropriate & no additional complaints except as documented Per HPI Physical Exam General General appearance: alert and in no apparent distress Comment: Appears older than stated age Head Head exam: atraumatic and normocephalic Eye Eye exam: Present PERRL and EOMI ENT ENT exam: Present mucous membranes moist Neck Neck exam: Present normal inspection and full ROM; Absent tenderness or lymphadenopathy Chest Chest inspection: Present symmetric chest wall rise and other (No bruises, abrasions, or lacerations); Absent tenderness Respiratory Respiratory exam: Present normal lung sounds bilaterally; Absent respiratory distress, wheezes or stridor Cardiovascular Cardiovascular exam: Present regular rate and normal rhythm Abdominal Exam Abdominal exam: Present soft; Absent distention, tenderness, guarding or rebound Extremities Exam Extremities exam: Present full ROM and edema (+1 distal bilateral lower extremity pitting edema) Back Exam Back exam: Present full ROM; Absent tenderness, CVA tenderness (R) or CVA tenderness (L) Neurological Exam Neurological exam: Present alert, oriented X3 and other (No cerebellar symptoms, NIH 0); Absent normal gait (steady with one-person assist) or motor sensory deficit Psychiatric Psychiatric exam: Present normal affect and normal mood Skin Skin exam: Present warm and dry Medical Decision Making Medical Records Medical records reviewed: Yes I reviewed the patient's medical records. Screening: Per USPSTF and CDC recommendations, given the prevalence of disease in our region, it is our hospital?s policy to screen for HIV and viral Hepatitis for all patients aged 18 and over and those with ongoing risk factors. Jamie Inquiry Pt receiving controlled substance: No Vital Signs: 08/06/25 00:00 08/06/25 00:09 08/06/25 00:45 Temperature 98.2 F Temperature Source Oral Pulse Rate 57 L 58 L Pulse Rate [Left] 68 Respiratory Rate 20 Blood Pressure 116/59 L 116/65 Blood Pressure [Right Arm] 116/59 L Blood Pressure Mean [Right Arm] 78 Blood Pressure Source [Right Arm] Automatic Cuff Blood Pressure Position [Right Arm] Sitting 02 Sat by Pulse Oximetry 95 97 94 L Oxygen Delivery Method Room Air 08/06/25 01:15 Temperature Temperature Source Pulse Rate 58 L Pulse Rate [Left] Respiratory Rate Blood Pressure 131/64 Blood Pressure [Right Arm] Blood Pressure Mean [Right Arm] Blood Pressure Source [Right Arm] Blood Pressure Position [Right Arm] 02 Sat by Pulse Oximetry 95 Oxygen Delivery Method Lab Data Lab Results 08/05/25 00:45: Urine Color Yellow, Urine Appearance Clear, Urine pH 5.5, Ur Specific [place] 1.025, Urine Protein Trace, Urine Glucose (UA) Negative, Urine Ketones Trace, Urine Blood Negative, Urine Nitrate Negative, Urine Bilirubin Negative, Urine Urobilinogen 0.2, Ur Leukocyte Esterase Negative 08/06/25 00:03: WBC 9.0, RBC 4.64, Hgb 13.7 L, Hct 41.6 L, MCV 89.7, MCH 29.5, MCHC 32.9, RDW 13.8, Plt Count 123 L, MPV 12.9 H, Neut % (Auto) 61.8, Lymph % (Auto) 23.9, [place] % (Auto) 11.0 H, Eos % (Auto) 2.6, Baso % (Auto) 0.3, Neut # (Auto) 5.5, Lymph # (Auto) 2.1, [place] # (Auto) 1.0, Eos # (Auto) 0.2, Baso # (Auto) 0.0, VBG pH 7.34, VBG pCO2 52.6 H, VBG pO2 39.8, VBG HCO3 27.6, VBG Total CO2 29.2 H, VBG O2 Saturation 78.4 H, VBG Base Excess 1.8, VBG Lactic Acid 2.3 H, Sodium 143, Potassium 4.2, Chloride 100, Carbon Dioxide 31 H, Anion Gap 16.3 H, BUN 24 H, Creatinine 1.60 H, Estimated Creat Clear 54, Estimated GFR 44 L, Est GFR ( Amer) 53 L, Glucose 100, Calcium 9.2, Total Bilirubin 0.4, AST 25, ALT 12, Alkaline Phosphatase 87, Total Protein 7.1, Albumin 4.2, Globulin 2.9, Albumin/Globulin Ratio 1.4, Plasma/Serum Alcohol < 10 08/06/25 00:45: Urine Opiates Screen Negative, Urine Methadone Screen Negative, Ur Barbituates Screen Negative, Ur Phencyclidine Scrn Negative, Ur Amphetamines Screen Negative, U Benzodiazepines Scrn Negative, Urine Cocaine Screen Negative, U Marijuana (THC) Screen Negative 08/06/25 00:03 08/06/25 00:03 Orders (Tests/Meds): ED MEDICATIONS Discontinued Medications Generic Name Dose Route Start Last Admin Trade Name Isaura PRN Reason Stop Dose Admin Sodium Chloride 1,000 mls @ 999 mls/hr 08/06/25 00:27 11 00:41 Sod Chlor 0.9% 1000ml Bag IV 08/06/25 01:27 999 mls/hr .Q1H1M ONE Administration ORDERS Category Date Time Status CT cervical spine wo con Stat Cat Scan 08/05/25 23:[address] head/brain wo con Stat Cat Scan 08/05/25 23:58 Completed CXR --portable [XR chest portable] Stat Exams 08/05/25 23:58 Completed Pelvis XR 1-2 views [XR pelvis 1-2V] Stat Exams 08/05/25 23:58 Completed CBC w/Auto Diff [Complete Blood Count Auto Diff] Stat Lab 08/05/25 23:58 Completed CMP [Comprehensive Metabolic Panel] Stat Lab 08/05/25 23:58 Completed Ethanol [Ethyl Alcohol] Stat Lab 08/05/25 23:58 Completed UDS [Drug Screen,Urine] Stat Lab 08/06/25 00:45 Completed Urinalysis and Microscopic Stat Lab 08/05/25 00:45 Completed VBG [Venous Blood Gas] Stat RT 08/06/25 00:03 Completed Medical Decision Narrative: In summary, this 65-year-old male with comorbidities described in the HPI presents to the emergency department today from [facility] for concerns of a fall. On initial evaluation patient is hemodynamically stable, afebrile, GCS 15, NIH 0, on thorough physical exam patient has no evidence of acute traumatic injury, no pain or tenderness, full range of motion throughout, moist mucous membranes, benign cardiopulmonary exam, benign abdominal exam. Patient is slow to answer questions but answers accurately and does not have dysarthria or aphasia. Differential diagnosis includes but is not limited to anemia, electrolyte abnormality, dehydration, urinary tract infection, I considered the possibility of acute traumatic injury but have very low suspicion for this since patient has no areas of tenderness or pain. Because he is on blood thinners and has advanced age, I will scan his head and neck to rule out intracranial bleed, C-spine injury, will also perform chest and pelvis x-ray to ensure there are no acute injuries in these areas. Based on these concerns, I ordered basic hematologic and serum labs, UDS, urinalysis, CT head and C-spine, chest and pelvis x-ray. Patient received IV fluids for treatment. Labs personally reviewed demonstrate no leukocytosis, slight anemia with hemoglobin 13.7 is nonactionable especially since patient has normal vitals, VBG with pH 7.34, slight hypercarbia likely consistent with baseline COPD, patient is oxygenating well on room air and has no abnormalities on respiratory exam, VBG lactic 2.3, patient is already receiving IV fluids. CMP demonstrates findings of CKD, creatinine 1.6 slightly increased from 1.4 at the end of June but no ASA. Mildly elevated anion gap consistent with a slightly elevated lactic on VBG. Patient is receiving IV fluids. Glucose 100. Euglycemic. UA negative for findings of infection. EtOH negative. Chest x-ray personally interpreted does not demonstrate acute intrathoracic traumatic injury, pelvis x-ray first interpreted does not demonstrate acute osseous injury. See radiology read for final interpretations CT head personally interpreted does not demonstrate acute intracranial bleed or skull fracture, CT cervical spine demonstrates degenerative changes but no acute traumatic injury. See radiology reads for final interpretations. Radiology read does comment on thyroid nodule. Patient was notified of this and recommended PCP follow-up. This will also be communicated to the nursing facility and I sent a referral regarding this to his PCP Dr. Cramer. On reassessment patient is hemodynamically stable, resting comfortably, at his baseline. I believe he is appropriate for discharge at this time. Patient was given instructions on symptomatic management, follow up instructions, and return precautions for the emergency department. All discharge instructions were also given to nursing facility nurse Trinh in verbal report and provided in written form. Patient indicated understanding and was discharged in stable condition. Critical Care Critical Care Time Critical Care Time: No
[2025-08-06 00:45] VITALS: BP 116/65; PULSE 58; O2SAT 94
[2025-08-06 00:52] LABS: Albumin/Globulin Ratio 1.4 (1.1-1.8); Globulin 2.9 g/dL (1.3-3.2)
[2025-08-06 00:53] LABS: Albumin Level 4.2 g/dl (3.5-5.0)
--- NOTE | 2025-08-06 00:58 | PC.NURSE ---
Pt in/out cath for UA without difficulty
[2025-08-06 01:06] LABS: Microscopic, Urine URINE MICROSCOPIC (MICROSCOPIC)
[2025-08-06 01:13] LABS: Bilirubin,Urine Negative (Negative); Color,Urine YELLOW (Yellow); Glucose,Urine (UA) Negative (Negative); Ketones,Urine TRACE (Negative); Leukocyte Esterase,Urine Negative (Negative); PH,Urine 5.5 (5.0-8.5); Protein,Urine TRACE (Negative); Specific Gravity, Urine 1.025 (1.005-1.030); Urobilinogen,Urine 0.2 EU/dl (0.2)
[2025-08-06 01:15] VITALS: BP 131/64; PULSE 58; O2SAT 95
[2025-08-06 01:42] LABS: Barbiturates Screen,Urine Negative ng/ml (<200); Benzodiazepines Screen,Urine Negative ng/ml (<200)
[2025-08-06 01:43] LABS: Amphetamine/Metha Screen,Urine Negative ng/ml (<1000); Methadone Screen,Urine Negative ng/ml (<300)
[2025-08-06 01:45] LABS: Opiate Screen,Urine Negative ng/ml (<300)
[2025-08-06 01:46] LABS: Phencyclidine Screen,Urine Negative ng/ml (<25)
[2025-08-06 02:12] VITALS: BP 145/72; PULSE 60; RESP 20; TEMP 36.8; O2SAT 96
--- NOTE | 2025-08-06 02:13 | PC.NURSE ---
IV discontinued. Catheter tip intact. Bleeding controlled.
[2025-08-06 04:15] LABS: Reflex Lactic Add Lactic Reflex
== END 2025-08-06 02:21 ==
PROVIDERS: Emergency Provider Emergency Medicine; PCP Family Medicine
DX: E04.1 Nontoxic single thyroid nodule (principal); W19.XXXA Unspecified fall, initial encounter
CPT/HCPCS: 70450; 71045; 72125; 72170; 80053; 80307; 80320; 81001; 82803; 85025; 96360; 99285; J7030

== ENCOUNTER 2025-08-14 08:32 | Outpatient (CLI) | payer MEDICARE, MEDICAID, SELFPAY ==
--- OUTSIDE RECORDS SUMMARY | 2025-08-14 08:34 | XMS_ITS | CCD ---
Author Organization Unknown Care Team Providers Care Senior Business Consultant Name Role Phone Unavailable Primary Care Provider Unavailabl e Unavailable Chronic Care Management Unavaila ble Summary Purpose DataExchange Insurance Providers Payer name Policy type / Coverage type Covered democrat ID Effective Begin Date Effective End Date [facility] [id number] Unknown Unknown Family History Family History data not found Medication Administered No Medication Administered data Reason For Visit No Reason For Visit data Medical Equipment No Medical Equipment data Advance Directives No Advance Directive data
--- OUTSIDE RECORDS SUMMARY | 2025-08-14 08:34 | XMS_ITS | Clinical Summary ---
Author Organization [employer] [facility] Medical Address [address] [place] [phone] Phone Care Team Providers Care Rug Washer Name Role Phone Blankman OD, Terri Primary Care Physician [phone] Conditions or Problems Problem Name Problem Code Onset Date Status Entry Date Provider Comment Standard Description Annotate Myopia, bilateral 05259863 (SNOMED CT) Inactive Terri Blankman OD Myopia Exophthalmo s, bilateral 86615787 (SNOMED CT) Inactive Terri Blankman OD Exophthalmos Nuclear cataract 05502681 (SNOMED CT) Inactive Terri Blankman OD Nuclear cataract 250.00 Diabetes II without ophthal manif E11.9 (ICD-10-CM ) Inactive Terri Blankman OD Type 2 diabetes mellitus without complications Medications No information available. Medications Administered No information available. Allergies, Adverse Reactions, Alerts No information available. Results No information available. Plan of Care No information available. Procedures Code Procedure Name Date Entry Date [id number] OPH ESTAB comprehensive Vital Signs No information available. Immunizations No information available. Advance Directives No information available.
[2025-08-14 09:49] LABS: Valproic Acid, (Depakene) 30.9 ug/ml (50-100)
== END 2025-08-14 23:59 | disposition home or self-care (01) ==
LOC: LAB.DROPOF 08:32
PROVIDERS: PCP Family Medicine; Visit Provider Nurse Practitioner Family
DX: Z51.81 Encounter for therapeutic drug level monitoring (principal)
CPT/HCPCS: 36415; 80164

== ENCOUNTER 2025-08-30 08:07 | Outpatient (CLI) | payer MEDICARE, MEDICAID, SELFPAY ==
--- NOTE | 2025-08-30 08:15 | US_ITS ---
FINAL REPORT CLINICAL HISTORY: E04.1 - Nontoxic single thyroid nodule-- fna -- eliot steele rt side FINDINGS: ULTRASOUND GUIDED THYROID BIOPSY HISTORY: Right thyroid nodule. ATTENDING RADIOLOGIST: Dr. Elliott PHYSICIAN CASINO DUTY MANAGER: Eliot Avila PA-C PROCEDURE: After informed consent was obtained and a time-out was performed, the patient was prepped and draped in usual sterile fashion over the right neck. Utilizing sterile technique with a 25-gauge needle, access to lesion was obtained under direct ultrasound guidance. Three passes were made. The patient tolerated procedure well and left the department in good condition. IMPRESSION: Status post ultrasound guided biopsy of thyroid without immediate complication. Reviewed, Interpreted and Dictated by Kelly Brower MD Transcribed by MORRIS Griffin Authenticated and [facility]
== END 2025-08-30 23:59 | disposition home or self-care (01) ==
PROVIDERS: PCP Family Medicine; Visit Provider Nurse Practitioner Family
DX: E04.1 Nontoxic single thyroid nodule (principal); R93.89 Abnormal findings on diagnostic imaging of other specified body structures
CPT/HCPCS: 10005

== ENCOUNTER 2025-09-06 08:58 | Outpatient (CLI) | payer MEDICARE, MEDICAID, SELFPAY ==
--- OUTSIDE RECORDS SUMMARY | 2025-09-06 09:01 | XMS_ITS | CCD ---
Author Organization Unknown Care Team Providers Care Real Estate Officer Name Role Phone Unavailable Primary Care Provider Unavailabl e Unavailable Chronic Care Management Unavaila ble Summary Purpose DataExchange Insurance Providers Payer name Policy type / Coverage type Covered green party ID Effective Begin Date Effective End Date [facility] [id number] Unknown Unknown Family History Family History data not found Medication Administered No Medication Administered data Reason For Visit No Reason For Visit data Medical Equipment No Medical Equipment data Advance Directives No Advance Directive data
--- NOTE | 2025-09-06 09:30 | XR_ITS ---
FINAL REPORT CLINICAL HISTORY: falls, osteopenia, bone loss COMPARISON: None FINDINGS: Using L1-4, the bone mineral density of the spine is 0.949 g/cm2, corresponding to T-score of -1.3. Using the left hip, the bone mineral density of the femoral neck is 0.623 g/cm2, corresponding to a T-score of -2.7. Using the right hip, the bone mineral density of the femoral neck is 0.696 g/cm2, corresponding to a T-score of -2.2. NOTE: T-score: Standard deviation compared with peak bone mass of young adult mean. *Following the recommendations of the International Society of Bone densitometry, classification of hip BMD is based on the lower of two T-scores; total hip or femoral neck. IMPRESSION: Diminished bone mineral density of the lumbar spine and the right femoral neck consistent with osteopenia. Diminished bone mineral density of the left femoral neck consistent with osteoporosis. Reviewed, Interpreted and Dictated by Abeba Washington MD Transcribed by Mindy Camacho Authenticated and [facility]
== END 2025-09-06 23:59 | disposition home or self-care (01) ==
LOC: RAD 08:59
PROVIDERS: PCP Family Medicine; Visit Provider Nurse Practitioner Family
DX: M81.0 Age-related osteoporosis without current pathological fracture (principal)
CPT/HCPCS: 77080